=== PATIENT | female | born 1930 | race Caucasian/White ===

== ENCOUNTER → 2016-11-25 | Outpatient (CLI) | payer MEDICARE ==
[~2016-11-25] MED LIST: BUME1TAB PO; BUPR300T PO; CALTTAB PO; COZA50TA PO; DESE1CRE TOP; DIGO0.12 PO; FERR325T PO; IPRAAER INH; MAPA325T6 PO; OMPR20CCR PO; PERC5TAB12 PO; POTA-243 PO; PRAV10 PO; SM A81CH PO; SM V SL; TRIA.1%T TOP; WARF5TAB PO
--- NOTE | 2016-12-01 09:21 | RSPPFT ---
DATE OF PROCEDURE: 11/25/16 COMMENTS: Spirometry with FVC of 1.9 predicted 2.3, FEV1 of 1.4 predicted 1.5, FEV1/FVC ratio 72% predicted 80%. Post-bronchodilator FVC increases to 2.2. Lung volumes are basically within the predicted. DLCO is 60% of predicted and within the predicted range when corrected for alveolar volume. IMPRESSION: On the basis of the above, patient has flow values within the predicted range. There is a mild improvement post-bronchodilator.
== END ==
LOC: HRSP 08:51
PROVIDERS: ATTEND Internal Medicine Pulmonary Disease
DX: J44.9 Chronic obstructive pulmonary disease, unspecified (principal)
CPT/HCPCS: 94060; 94620; 94726; 94729

== ENCOUNTER 2018-01-17 13:35 | Inpatient (IN) ==
[2018-01-17] MEDS ORDERED: Sod Chloride 0.9% Inj 1,000 ML IV.CONT SCH (18:00)
--- NOTE | 2018-01-17 18:00 | ED ---
HPI General Chief Complaint: Respiratory Symptoms Stated Complaint: Cough/Back/Confused Complaint Time Seen by Provider: 01/17/18 17:42 Source: patient Mode of arrival: ambulatory Limitations: no limitations History of Present Illness HPI narrative: The patient is a 87-year-old female who presents to the emergency department via private vehicle with her for altered mental status and cough. According to the the patient developed a cough and shortness of breath approximately 2 weeks ago. The patient was unable to obtain an appointment with her primary physician, Dr. Soto, and subsequently went to the walk-in clinic at [facility]. The patient was placed on a cephalosporin at that time for cough, however, did not finish the antibiotic. The patient returned to the walk-in clinic and was subsequently placed on Augmentin. The patient also started taking Mucinex. The states the patient started to develop confusion after she started taking the medications. Upon arrival the patient is oriented to date of and name, but does not know the current month, year, or procurement agent. The patient does complain of a dry nonproductive cough with mild shortness of breath. The patient denies any nausea, vomiting, diarrhea, abdominal pain, or dysuria. The patient does take Coumadin for history of valvular disorder. The patient denies any trauma to the head or neck, however, was noted to have some ecchymosis to the left maxilla that occurred approximately 1 week ago according to the . complaint: Reports altered mental status, confusion and weakness Onset (ago): week(s) Timing confirmed by: spouse Severity: moderate Consistency of symptoms: waxing and waning and getting worse Context: Reports change in medication and other Associated symptoms: Reports cough and shortness of breath Treatments prior to arrival: Reports other Related Data Home Medications Medication Instructions Recorded Confirmed bumetanide 1 mg PO BID 01/17/18 01/17/18 bupropion HCl 300 mg PO QAM 01/17/18 01/17/18 digoxin 0.125 mg PO DAILY 01/17/18 01/17/18 losartan 50 mg PO DAILY 01/17/18 01/17/18 omeprazole 20 mg PO DAILY 01/17/18 01/17/18 potassium chloride 10 meq PO DAILY 01/17/18 01/17/18 pravastatin 10 mg PO DAILY 01/17/18 01/17/18 warfarin 5 mg PO DAILY 01/17/18 01/17/18 Allergies Allergy/AdvReac Type Severity Reaction Status Date / Time phenol Allergy Severe body rash Verified 01/17/18 13:58 and swollen tounge phenol liquid Allergy Severe body rash Verified 01/17/18 13:58 and swollen tounge red dye Allergy Severe Rash Verified 01/17/18 13:58 Sulfa (Sulfonamide Allergy Severe Hives Verified 01/17/18 13:58 Antibiotics) benzonatate Allergy Rash Verified 01/17/18 14:00 diltiazem [From Cardizem] Allergy Rash Verified 01/17/18 14:00 lisinopril Allergy Rash Verified 01/17/18 14:00 Review of Systems ROS: all other systems reviewed are negative [facility] Medical History Medical History CHF (congestive heart failure) (Acute) Depression (Acute) GERD (gastroesophageal reflux disease) (Acute) Hypercholesteremia (Acute) Hypertension (Acute) Surgical History Surgical History Aortic valve replaced (Acute) Social History Social History Substance History: No History of Abuse Second Hand Smoke Exposure: No Smoking Status: Never smoker How Often Do You Have a Drink Containing Alcohol: Monthly or less Recent Travel in [facility] within the Last 8 Weeks: No Recent Out of Country Travel within the Last 8 Weeks: No Immunization History Tetanus Immunization: <5 Years Exam Narrative Exam Narrative: GENERAL: Awake, alert, pleasant 87-year-old female who appears her stated age and is in no acute respiratory distress. SKIN: Focused skin assessment warm/dry. HEAD: The patient appears to have an old area of ecchymosis to the left maxilla. EYES: Pupils equal and round. 3 mm bilateral and reactive. ENT: No nasal bleeding or discharge. Mucous membranes pink and moist. NECK: Trachea midline. No JVD. CARDIOVASCULAR: Irregularly irregular with a rate in the 60s. Systolic murmur noted. RESPIRATORY: No accessory muscle use. Clear to auscultation. Breath sounds equal bilaterally. GASTROINTESTINAL: Abdomen soft, non-tender, nondistended. MUSCULOSKELETAL: No obvious deformities. No clubbing. No cyanosis. No edema. NEUROLOGICAL: Awake and alert. No obvious cranial nerve deficits. Motor grossly within normal limits. Normal speech. Patient is oriented to person and date of , but does not know the current month, year, or procurement agent. PSYCHIATRIC: Appears confused. Course Initial Documented Vital Signs Temperature 98.8 F 01/17/18 13:48 Pulse Rate 74 01/17/18 13:48 Respiratory Rate 16 01/17/18 13:48 Blood Pressure 199/86 H 01/17/18 13:48 Pulse Oximetry 99 01/17/18 13:48 Last Documented Vital Signs Temperature 98.8 F 01/17/18 13:48 Pulse Rate 75 01/17/18 21:06 Respiratory Rate 16 01/17/18 21:06 Blood Pressure 152/70 H 01/17/18 21:06 Pulse Oximetry 98 01/17/18 21:06 Sign Out Sign Out Data: Patient Sign Out occurred on 01/17/18 at 19:06. Patient's care was discussed, and care was transferred from Baldo Roth MD to David Barrientos DO. Sign Out Comment: 87-year-old female with 2-week history of cough, now with altered mental status. Has already been on a cephalosporin and Augmentin on an outpatient basis. Patient appears to have delirium with acute altered mental status, after workup most likely will need 23-hour observation and/or admission. Last updated by Baldo Roth MD at 01/17/18 18:48 Medical Decision Making MDM Narrative Medical decision making narrative: IV was established, labs are drawn and sent, and the patient was placed on cardiac telemetry monitoring and continuous pulse oximetry monitoring. Chest x-ray was obtained. CT of the brain was obtained to rule out intracranial hemorrhage/subdural hemorrhage as patient is on Coumadin with altered mental status. Patient with hyponatremia of 119 she is currently receiving normal saline at 125 cc an hour. AK I also noted. Patient is back to baseline as far as mentation. Her CAT scan was unremarkable. She was given clonidine p.o. 0.2 mg for blood pressure of 203/97. Subtherapeutic INR 1.7. Patient on bacteria on UA but no signs of pyuria nitrate and leuk esterase negative. She does have a marginal leukocytosis. No bandemia. Lactic acid is 2.0. Medical Screen Exam Complete: Yes Emergency Medical Condition: Yes Differential Diagnosis Differential Diagnosis: Differential diagnosis includes delirium, pneumonia, hyponatremia, acute renal failure, subdural hemorrhage, CVA, intracranial hemorrhage, UTI, medication side effect. Lab Data Result diagrams: 01/17/18 18:04 01/17/18 20:50 Lab Results 01/17/18 01/17/18 01/17/18 Range/Units 18:04 18:04 18:04 WBC 11.2 H (4.0-11.0) th/mm3 RBC 3.59 L (4.00-5.30) mil/mm3 Hgb 11.3 L (11.6-15.3) gm/dL Hct 32.8 L (35.0-46.0) % MCV 91.2 (80.0-100.0) fL MCH 31.5 (27.0-34.0) pg MCHC 34.5 (32.0-36.0) % RDW 15.3 (11.6-17.2) % Plt Count 196 (150-450) th/mm3 MPV 8.1 (7.0-11.0) fL Neut % (Auto) 82.9 H (16.0-70.0) % Lymph % (Auto) 7.7 L (9.0-44.0) % [place] % (Auto) 7.8 (0.0-8.0) % Eos % (Auto) 1.2 (0.0-4.0) % Baso % (Auto) 0.4 (0.0-2.0) % Neut # (Auto) 9.2 H (1.8-7.7) th/mm3 Lymph # (Auto) 0.9 L (1.0-4.8) th/mm3 [place] # (Auto) 0.9 (0.0-0.9) th/mm3 Eos # (Auto) 0.1 (0.0-0.4) th/mm3 Baso # (Auto) 0.0 (0.0-0.2) th/mm3 WBC Differential . Differential Comment Auto diff final PT 16.7 H (9.8-11.6) sec INR 1.7 Ratio APTT 38.1 H (23.4-31.7) sec Sodium 119 L* (136-145) meq/L Potassium 3.5 (3.5-5.1) meq/L Chloride 83 L (98-107) meq/L Carbon Dioxide 27.6 (21.0-32.0) meq/L Anion Gap 8 (5-15) meq/L BUN 17 (7-18) mg/dL Creatinine 1.18 H (0.50-1.00) mg/dL Estimated GFR 43 L (>89) mL/min Random Glucose 135 H (74-106) mg/dL Osmolality (275-295) mosm/kg Lactic Acid (0.4-2.0) mmol/L Calcium 9.2 (8.5-10.1) mg/dL Magnesium 1.8 (1.5-2.5) mg/dL Total Bilirubin 1.2 H (0.2-1.0) mg/dL AST 77 H (15-37) U/L ALT 44 (10-53) U/L Alkaline Phosphatase 72 (45-117) U/L Ammonia (11-32) mcmol/L Total Creatine Kinase 501 H (26-192) U/L CK-MB (CK-2) 8.0 H (0.5-3.6) ng/mL CK-MB (CK-2) % 1.6 (0.0-4.0) % Troponin I 0.02 (0.02-0.05) ng/mL Total Protein 8.4 H (6.4-8.2) g/dL Albumin 4.2 (3.4-5.0) g/dL TSH 1.240 (0.358-3.740) uIU/mL Urine Color (Yellw/Straw) Urine Clarity (Clear) Urine pH (5.0-8.5) Ur Specific [place] (1.002-1.035) Urine Protein (Neg-Trace) mg/dL Urine Glucose (UA) (Negative) mg/dL Urine Ketones (Negative) mg/dL Urine Occult Blood (Negative) Urine Nitrate (Negative) Urine Bilirubin (Negative) Urine Urobilinogen (Less than 2) mg/dL Ur Leukocyte Esterase (Negative) Urine RBC (0-3) /hpf Urine WBC (0-5) /hpf Ur Squamous Epith Cells (0-5) /hpf Urine Bacteria (None) /hpf Urine Mucus (Occasional) /lpf Micro UA Comment Ur Microscopic Review Urine Culture Comments Urine Osmolality (300-1300) mosm/kg Digoxin 1.2 (0.8-2.0) ng/mL 01/17/18 01/17/18 01/17/18 Range/Units 18:04 18:04 18:43 WBC (4.0-11.0) th/mm3 RBC (4.00-5.30) mil/mm3 Hgb (11.6-15.3) gm/dL Hct (35.0-46.0) % MCV (80.0-100.0) fL MCH (27.0-34.0) pg MCHC (32.0-36.0) % RDW (11.6-17.2) % Plt Count (150-450) th/mm3 MPV (7.0-11.0) fL Neut % (Auto) (16.0-70.0) % Lymph % (Auto) (9.0-44.0) % [place] % (Auto) (0.0-8.0) % Eos % (Auto) (0.0-4.0) % Baso % (Auto) (0.0-2.0) % Neut # (Auto) (1.8-7.7) th/mm3 Lymph # (Auto) (1.0-4.8) th/mm3 [place] # (Auto) (0.0-0.9) th/mm3 Eos # (Auto) (0.0-0.4) th/mm3 Baso # (Auto) (0.0-0.2) th/mm3 WBC Differential Differential Comment PT (9.8-11.6) sec INR Ratio APTT (23.4-31.7) sec Sodium (136-145) meq/L Potassium (3.5-5.1) meq/L Chloride (98-107) meq/L Carbon Dioxide (21.0-32.0) meq/L Anion Gap (5-15) meq/L BUN (7-18) mg/dL Creatinine (0.50-1.00) mg/dL Estimated GFR (>89) mL/min Random Glucose (74-106) mg/dL Osmolality (275-295) mosm/kg Lactic Acid 2.0 (0.4-2.0) mmol/L Calcium (8.5-10.1) mg/dL Magnesium (1.5-2.5) mg/dL Total Bilirubin (0.2-1.0) mg/dL AST (15-37) U/L ALT (10-53) U/L Alkaline Phosphatase (45-117) U/L Ammonia 14 (11-32) mcmol/L Total Creatine Kinase (26-192) U/L CK-MB (CK-2) (0.5-3.6) ng/mL CK-MB (CK-2) % (0.0-4.0) % Troponin I (0.02-0.05) ng/mL Total Protein (6.4-8.2) g/dL Albumin (3.4-5.0) g/dL TSH (0.358-3.740) uIU/mL Urine Color Yellow (Yellw/Straw) Urine Clarity Clear (Clear) Urine pH 6.0 (5.0-8.5) Ur Specific [place] 1.004 (1.002-1.035) Urine Protein 100 H (Neg-Trace) mg/dL Urine Glucose (UA) Negative (Negative) mg/dL Urine Ketones Negative (Negative) mg/dL Urine Occult Blood Small H (Negative) Urine Nitrate Negative (Negative) Urine Bilirubin Negative (Negative) Urine Urobilinogen Less than 2 (Less than 2) mg/dL Ur Leukocyte Esterase Negative (Negative) Urine RBC 2 (0-3) /hpf Urine WBC Less than 1 (0-5) /hpf Ur Squamous Epith Cells <1 (0-5) /hpf Urine Bacteria Occasional H (None) /hpf Urine Mucus Few H (Occasional) /lpf Micro UA Comment Culture not ind Ur Microscopic Review Not Reportable Urine Culture Comments Culture not ind Urine Osmolality (300-1300) mosm/kg Digoxin (0.8-2.0) ng/mL 01/17/18 01/17/18 01/17/18 Range/Units 20:50 20:50 20:55 WBC (4.0-11.0) th/mm3 RBC (4.00-5.30) mil/mm3 Hgb (11.6-15.3) gm/dL Hct (35.0-46.0) % MCV (80.0-100.0) fL MCH (27.0-34.0) pg MCHC (32.0-36.0) % RDW (11.6-17.2) % Plt Count (150-450) th/mm3 MPV (7.0-11.0) fL Neut % (Auto) (16.0-70.0) % Lymph % (Auto) (9.0-44.0) % [place] % (Auto) (0.0-8.0) % Eos % (Auto) (0.0-4.0) % Baso % (Auto) (0.0-2.0) % Neut # (Auto) (1.8-7.7) th/mm3 Lymph # (Auto) (1.0-4.8) th/mm3 [place] # (Auto) (0.0-0.9) th/mm3 Eos # (Auto) (0.0-0.4) th/mm3 Baso # (Auto) (0.0-0.2) th/mm3 WBC Differential Differential Comment PT (9.8-11.6) sec INR Ratio APTT (23.4-31.7) sec Sodium 124 L* (136-145) meq/L Potassium (3.5-5.1) meq/L Chloride (98-107) meq/L Carbon Dioxide (21.0-32.0) meq/L Anion Gap (5-15) meq/L BUN (7-18) mg/dL Creatinine (0.50-1.00) mg/dL Estimated GFR (>89) mL/min Random Glucose (74-106) mg/dL Osmolality 259 L (275-295) mosm/kg Lactic Acid (0.4-2.0) mmol/L Calcium (8.5-10.1) mg/dL Magnesium (1.5-2.5) mg/dL Total Bilirubin (0.2-1.0) mg/dL AST (15-37) U/L ALT (10-53) U/L Alkaline Phosphatase (45-117) U/L Ammonia (11-32) mcmol/L Total Creatine Kinase (26-192) U/L CK-MB (CK-2) (0.5-3.6) ng/mL CK-MB (CK-2) % (0.0-4.0) % Troponin I (0.02-0.05) ng/mL Total Protein (6.4-8.2) g/dL Albumin (3.4-5.0) g/dL TSH (0.358-3.740) uIU/mL Urine Color (Yellw/Straw) Urine Clarity (Clear) Urine pH (5.0-8.5) Ur Specific [place] (1.002-1.035) Urine Protein (Neg-Trace) mg/dL Urine Glucose (UA) (Negative) mg/dL Urine Ketones (Negative) mg/dL Urine Occult Blood (Negative) Urine Nitrate (Negative) Urine Bilirubin (Negative) Urine Urobilinogen (Less than 2) mg/dL Ur Leukocyte Esterase (Negative) Urine RBC (0-3) /hpf Urine WBC (0-5) /hpf Ur Squamous Epith Cells (0-5) /hpf Urine Bacteria (None) /hpf Urine Mucus (Occasional) /lpf Micro UA Comment Ur Microscopic Review Urine Culture Comments Urine Osmolality 91 L (300-1300) mosm/kg Digoxin (0.8-2.0) ng/mL Imaging Data Radiologist's impression: Chest X-Ray 01/17/18 17:50 CONCLUSION: Cardiomegaly with increase in pulmonary vascularity. Head CT 01/17/18 17:50 CONCLUSION: 1. Negative for an acute intracranial process 2. Minimal bilateral maxillary sinus disease . ECG Data EKG Prior to Arrival: No Attestation: I personally reviewed and interpreted this ECG as follows: Interpretation: EKG reveals atrial fibrillation with a rate in the 60s. Nonspecific ST changes. Discharge Plan Discharge Disposition Patient Disposition: 30 Still Patient Discharge Condition Condition: Good Discharge Details Diagnosis: Acute hyponatremia, Acute confusion Physicians Team ED Provider: David Barrientos Primary Care Provider: Ponce Soto Attending Provider: Teo Kent Discharge Interventions Interventions: ED Discharge Assessment Last Done: 01/17/18 21:25 Vital Signs Last Done: 01/17/18 19:22 Status ED Status: Left Department Discharge Information Discharge Date/Time: 01/17/18 21:26
[2018-01-17 18:25] LABS: Baso % (Auto) 0.4 % (0.0-2.0); Eos # (Auto) 0.1 th/mm3 (0.0-0.4); Eos % (Auto) 1.2 % (0.0-4.0); Hematocrit 32.8 % (35.0-46.0); Hemoglobin 11.3 gm/dL (11.6-15.3); Lymph # (Auto) 0.9 th/mm3 (1.0-4.8); Lymph % (Auto) 7.7 % (9.0-44.0); Mean Corpuscular HGB Conc 34.5 % (32.0-36.0); Mean Corpuscular Hemoglobin 31.5 pg (27.0-34.0); Mean Corpuscular Volume 91.2 fL (80.0-100.0); Mean Platelet Volume 8.1 fL (7.0-11.0); Mono # (Auto) 0.9 th/mm3 (0.0-0.9); Mono % (Auto) 7.8 % (0.0-8.0); Neut # (Auto) 9.2 th/mm3 (1.8-7.7); Neut % (Auto) 82.9 % (16.0-70.0); Platelet Count 196 th/mm3 (150-450); Red Blood Count 3.59 mil/mm3 (4.00-5.30); Red Cell Distribution Width 15.3 % (11.6-17.2); White Blood Count 11.2 th/mm3 (4.0-11.0)
--- NOTE | 2018-01-17 18:48 | CT ---
EXAM DATE: 01/17/2018 6:32 PM EST AGE/SEX: 87 years / Female INDICATIONS: Altered mental status CLINICAL DATA: This is the patient's initial encounter. Patient reports that signs and symptoms have been present for 1 day and indicates a pain score of 2/10. MEDICAL/SURGICAL HISTORY: Congestive heart failure. Hypertension. . Aortic valve RADIATION DOSE: 34.94 CTDI (mGy) COMPARISON: [facility], CT BRAIN W/O CONTRAST, 04/10/2010. . TECHNIQUE: CT of the head without contrast. Using automated exposure control and adjustment of the mA and/or kV according to patient size, radiation dose was kept as low as reasonably achievable to ob tain optimal diagnostic quality images. DICOM format image data is available electronically for revi ew and comparison. FINDINGS: Cerebrum: The ventricles are normal for age. No evidence of midline shift, mass lesion, hemorrhage or acute infarction. No extraaxial fluid collections are seen. Posterior Fossa: The cerebellum and brainstem are intact. The 4th ventricle is midline. The cerebe llopontine angle is unremarkable. Extracranial: The visualized portion of the orbits is intact. Skull: The calvaria is intact. Minimal bilateral maxillary sinus disease No evidence of skull fract ure. CONCLUSION: 1. Negative for an acute intracranial process 2. Minimal bilateral maxillary sinus disease . Electronically signed by: Italo Baig MD 01/17/2018 6:47 PM EST
[2018-01-17 18:52] LABS: Activated Partial Thrombo Time 38.1 sec (23.4-31.7); INR 1.7 Ratio; Prothrombin Time 16.7 sec (9.8-11.6)
[2018-01-17 18:54] LABS: Alanine Aminotransferase 44 U/L (10-53); Albumin 4.2 g/dL (3.4-5.0); Anion Gap 8 meq/L (5-15); Aspartate Aminotransferase 77 U/L (15-37); Blood Urea Nitrogen 17 mg/dL (7-18); Calcium 9.2 mg/dL (8.5-10.1); Carbon Dioxide 27.6 meq/L (21.0-32.0); Chloride 83 meq/L (98-107); Glomerular Filtration Rate 43 mL/min (>89); Glucose,Random 135 mg/dL (74-106); Magnesium 1.8 mg/dL (1.5-2.5); Potassium 3.5 meq/L (3.5-5.1)
[2018-01-17 18:56] LABS: Sodium 119 meq/L (136-145)
[2018-01-17 19:03] LABS: Bacteria,Urine Occasional /hpf; Bilirubin,Urine Negative (Negative); Clarity,Urine Clear (Clear); Color,Urine Yellow (Yellw/Straw); Glucose,Urine (UA) Negative (Negative); Leukocyte Esterase,Urine Negative (Negative); Mucus,Urine Few /lpf (Occasional); Nitrite,Urine Negative (Negative); Specific Gravity,Urine 1.004 (1.002-1.035); Squamous Epithelial Cell,Urine <1 /hpf (0-5)
--- NOTE | 2018-01-17 19:04 | XR ---
EXAM DATE: 01/17/2018 6:24 PM EST AGE/SEX: 87 years / Female INDICATIONS: Short of breath. CLINICAL DATA: This is the patient's initial encounter. Patient reports that signs and symptoms have been present for 1 day and indicates a pain score of 0/10. MEDICAL/SURGICAL HISTORY: None. CABG. COMPARISON: No prior exams available for comparison. FINDINGS: A single AP view of the chest demonstrates cardiomegaly with heart valve replacements. Increase in pu lmonary vascularity. No infiltrate or airspace disease. The cardiomediastinal contours are unremarka ble. Osseous structures are intact. CONCLUSION: Cardiomegaly with increase in pulmonary vascularity. Electronically signed by: Efren Booth MD 01/17/2018 7:02 PM EST
[2018-01-17 19:09] LABS: Alkaline Phosphatase 72 U/L (45-117); Creatine Kinase 501 U/L (26-192); Digoxin 1.2 ng/mL (0.8-2.0); Total Protein 8.4 g/dL (6.4-8.2); Troponin I 0.02 ng/mL (0.02-0.05)
[2018-01-17 19:24] LABS: CKMB Percent 1.6 % (0.0-4.0)
[2018-01-17] MEDS ORDERED: Bisacodyl 10 MG Supp RECTAL PRN (20:04)
[2018-01-17] MEDS ORDERED: Acetaminophen 325 MG Tablet PO PRN (20:04)
[2018-01-17] MEDS ORDERED: Non-Formulary Drug (Bupropion Hcl [Bupropion Hcl] 300 MG) PO SCH (20:15)
[2018-01-18] MEDS: Sod Chloride 0.9% Inj 1,000 ML IV.CONT SCH ×2 (01:30→18:32)
[2018-01-18] MEDS: buPROPion 150 MG 12 HR Tablet PO SCH ×3 (04:02→22:07)
[2018-01-18 08:07] LABS: INR 1.9 Ratio; Prothrombin Time 19.3 sec (9.8-11.6)
[2018-01-18 08:30] LABS: Albumin 2.9 g/dL (3.4-5.0); Anion Gap 8 meq/L (5-15); Aspartate Aminotransferase 45 U/L (15-37); Blood Urea Nitrogen 17 mg/dL (7-18); Calcium 8.5 mg/dL (8.5-10.1); Carbon Dioxide 27.2 meq/L (21.0-32.0); Chloride 92 meq/L (98-107); Glomerular Filtration Rate 55 mL/min (>89); Glucose,Random 97 mg/dL (74-106); Potassium 3.5 meq/L (3.5-5.1); Sodium 127 meq/L (136-145)
--- NOTE | 2018-01-18 08:31 | P.HPIM ---
History of Present Illness Primary Care Physician: Ponce Soto MD Chief Complaint: Cough History of Present Illness: The patient is a 87-year-old female with a past medical history which includes aortic valve stenosis, Mitral and tricuspid valve regurgitation S/P Mitral and tricuspid valve repair on March 25, 2010 on chronic atrial fibrillation, gastroesophageal reflux disease, Lichens sclerosis, obstructive sleep apnea, HTN and hyperlipidemia. Patient presented to the ER last night with her for altered mental status and cough. According to the the patient developed a cough and shortness of breath approximately 2 weeks ago. The patient was unable to obtain an appointment with her primary physician, Dr. Soto, and subsequently went to the walk-in clinic at [facility]. The patient was placed on a cephalosporin at that time for cough, however, did not finish the antibiotic. The patient returned to the walk-in clinic and was subsequently placed on Augmentin. The patient also started taking Mucinex. The states the patient started to develop confusion after she started taking the medications. 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 The patient reports that she felt sick after taking the abx. The abx made her stomach upset but denies vomiting/diarrhea. Patient reports that she is not a big eater. PMH: History of aortic valve stenosis. S/P mechanical MVR Mitral and tricuspid valve regurgitation Mitral and tricuspid valve repair on March 25, 2010. She has history of chronic atrial fibrillation. History of gastroesophageal reflux disease. Lichens sclerosis. History of obstructive sleep apnea. History of hypertension in the past. Hyperlipidemia in the past. PSxH: History of bilateral knee replacements. BETO/BSO. History of bladder suspension surgery. Bladder fistula repair Colonoscopy EGD mitral and tricuspid valve annuloplasty AVR with mechanical valve paravaginal defect repair rotator cuff repair BETO with BSO total knee arthroplasty Social history: denies ETOH use or tobacco use FMH: Reviewed and noncontributory Inpatient Certification Inpatient Certification: I certify that the inpatient services were ordered in accordance with Medicare regulations governing the order. This includes certification that hospital inpatient services are reasonable and necessary and in the case of services not specified as inpatient-only under 42 CFR 419.22(n), that they are appropriately provided as inpatient services in accordance to with the 2-midnight benchmark under 43 CFR 412.3(e) Estimated Total Length of Stay (Days): 3 Plans for Post Hospital Care: Not yet determined Medications and Allergies Allergies Allergy/AdvReac Type Severity Reaction Status Date / Time phenol Allergy Severe body rash Verified 01/17/18 13:58 and swollen tounge phenol liquid Allergy Severe body rash Verified 01/17/18 13:58 and swollen tounge red dye Allergy Severe Rash Verified 01/17/18 13:58 Sulfa (Sulfonamide Allergy Severe Hives Verified 01/17/18 13:58 Antibiotics) benzonatate Allergy Rash Verified 01/17/18 14:00 diltiazem [From Cardizem] Allergy Rash Verified 01/17/18 14:00 lisinopril Allergy Rash Verified 01/17/18 14:00 Home Medications Medication Instructions Recorded Confirmed Type bumetanide 1 mg PO BID 01/17/18 01/17/18 History bupropion HCl 300 mg PO QAM 01/17/18 01/17/18 History digoxin 0.125 mg PO DAILY 01/17/18 01/17/18 History losartan 50 mg PO DAILY 01/17/18 01/17/18 History omeprazole 20 mg PO DAILY 01/17/18 01/17/18 History potassium chloride 10 meq PO DAILY 01/17/18 01/17/18 History pravastatin 10 mg PO DAILY 01/17/18 01/17/18 History warfarin 5 mg PO DAILY 01/17/18 01/17/18 History Active Medications: Active Medications Acetaminophen (Tylenol) 650 mg PO Q4H PRN PRN Reason: Temp > 100.4 Al Hydroxide/Mg Hydroxide (Milk Of Sara Liq) 30 ml PO Q12H PRN PRN Reason: Mild Constipation Bisacodyl (Dulcolax Supp) 10 mg RECTAL DAILY PRN PRN Reason: SEVERE CONSITIPATION Bupropion HCl (Wellbutrin Sr) 150 mg PO BID [facility] Last Admin: 01/18/18 04:02 Dose: Not Given Clonidine HCl (Catapres) 0.1 mg PO Q6H PRN PRN Reason: sbp> 170 Digoxin (Lanoxin) 125 mcg PO DAILY [facility] Sodium Chloride (Ns Inj) 1,000 mls @ 50 mls/hr IV.CONT .Q20H [facility] Last Admin: 01/18/18 01:30 Dose: 50 mls/hr Lactulose (Lactulose Liq) 30 ml PO DAILY PRN PRN Reason: SEVERE CONSITIPATION Losartan Potassium (Cozaar) 50 mg PO DAILY [facility] Ondansetron HCl (Zofran Inj) 4 mg IV.PUSH Q6H PRN PRN Reason: NAUSEA OR VOMITING Pantoprazole Sodium (Protonix) 20 mg PO DAILY [facility] Potassium Chloride (Klor-Con 10) 10 meq PO DAILY [facility] Pravastatin Sodium (Pravachol) 10 mg PO DAILY [facility] Sennosides (Senokot) 17.2 mg PO Q12H PRN PRN Reason: Moderate Constipation Sodium Chloride (Ns Flush) 2 ml IV.FLUSH PRN PRN PRN Reason: FLUSH AFTER USING IV ACCESS Warfarin Sodium (Coumadin) 5 mg PO DAILY [facility] Physical Exam Vital signs: Last Vital Signs Temp 97.7 F 01/18/18 08:00 Pulse 48 L 01/18/18 08:00 Resp 16 01/18/18 08:00 BP 124/54 L 01/18/18 08:00 Pulse Ox 97 01/18/18 08:00 Narrative: GENERAL: This is a thin elderly 87 year old female, well-developed patient, in no apparent distress. CARDIOVASCULAR: irregular irregular RESPIRATORY: diminished GASTROINTESTINAL: Abdomen soft, non-tender, nondistended. Normal active bowel sounds MUSCULOSKELETAL: Extremities without clubbing, cyanosis, or edema. NEURO: Alert & Oriented patient able to tell me her name , location, month and preseident. Moves all ext x4 Results Labs CBC & Chem 7: 01/17/18 18:04 01/18/18 12:38 Caprini VTE Risk Assessment Caprini VTE Risk Assessment: Moderate/High Risk (score >= 2) Caprini Risk Assessment Model: Point Value = 1 Point Value = 2 Point Value = 3 Point Value = 5 Age 41-60 Minor surgery BMI > 25 kg/m2 Swollen legs Varicose veins or History of unexplained or recurrent spontaneous Oral contraceptives or hormone replacement Sepsis (< 1 month) Serious lung disease, including pneumonia (< 1 month) Abnormal pulmonary function Acute myocardial infarction Congestive heart failure (< 1 month) History of inflammatory bowel disease Medical patient at bed rest Age 61-74 Arthroscopic surgery Major open surgery (> 45 min) Laparoscopic surgery (> 45 min) Malignancy Confined to bed (> 72 hours) Immobilizing plaster cast Central venous access Age >= 75 History of VTE Family history of VTE Factor V Leiden Prothrombin [id number] Lupus anticoagulant Anticardiolipin antibodies Elevated serum homocysteine Heparin-induced thrombocytopenia Other congenital or acquired thrombophilia Stroke (< 1 month) Elective arthroplasty Hip, pelvis, or leg fracture Acute spinal cord injury (< 1 month) Prophylaxis Regimen: Total Risk Factor Score Risk Level Prophylaxis Regimen 0-1 Low Early ambulation 2 Moderate Order ONE of the following: *Sequential Compression Device (SCD) *Heparin 5000 units SQ BID 3-4 Higher Order ONE of the following medications: *Heparin 5000 units SQ TID *Enoxaparin/Lovenox 40 mg SQ daily (WT < 150 kg, CrCl > 30 mL/min) *Enoxaparin/Lovenox 30 mg SQ daily (WT < 150 kg, CrCl > 10-29 mL/min) *Enoxaparin/Lovenox 30 mg SQ BID (WT < 150 kg, CrCl > 30 mL/min) AND/OR *Sequential Compression Device (SCD) 5 or more Highest Order ONE of the following medications: *Heparin 5000 units SQ TID (Preferred with Epidurals) *Enoxaparin/Lovenox 40 mg SQ daily (WT < 150 kg, CrCl > 30 mL/min) *Enoxaparin/Lovenox 30 mg SQ daily (WT < 150 kg, CrCl > 10-29 mL/min) *Enoxaparin/Lovenox 30 mg SQ BID (WT < 150 kg, CrCl > 30 mL/min) AND *Sequential Compression Device (SCD) Assessment and Plan Plan The patient is a 87-year-old female with a past medical history which includes who presents to the emergency department via private vehicle with her for altered mental status and cough. According to the the patient developed a cough and shortness of breath approximately 2 weeks ago. The patient was unable to obtain an appointment with her primary physician, Dr. Soto, and subsequently went to the walk-in clinic at [facility]. The patient was placed on a cephalosporin at that time for cough, however, did not finish the antibiotic. The patient returned to the walk-in clinic and was subsequently placed on Augmentin. The patient also started taking Mucinex. The states the patient started to develop confusion after she started taking the medications. 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 The patient does complain of a dry nonproductive cough with mild shortness of breath. The patient denies any nausea, vomiting, diarrhea, abdominal pain, or dysuria. The patient does take Coumadin for history of valvular disorder. The patient reports that she felt sick after taking the abx. The abx made her stomach upset but denies vomiting/diarrhea. Patient reports that she is not a big eater. AMS- improving likely related to Hyponatremia Head CT 01/17/18 1. Negative for an acute intracranial process 2. Minimal bilateral maxillary sinus disease on admission Na was 119 -> 124 -> 127 hold Bumex Continue gentle IVF recheck BMP at noon and in AM Cough- improving Chest X-Ray 01/17/18 Cardiomegaly with increase in pulmonary vascularity. Aortic valve stenosis S/P AVR mechanical valve chronic atrial fibrillation. INR on admission 1.7 -> 1.9 Will give Lovenox 50 mg x 1 continue Coumadin recheck INR in AM Gastroesophageal reflux disease Continue patient's home omeprazole Hyperlipidemia Continue home pravastatin DVT prophylaxis on Coumadin
[2018-01-18 08:36] LABS: Alanine Aminotransferase 28 U/L (10-53); Alkaline Phosphatase 52 U/L (45-117); Total Protein 5.9 g/dL (6.4-8.2)
[2018-01-18] MEDS: Pantoprazole Sodium 20 MG DR Tablet PO SCH (09:03)
[2018-01-18] MEDS: Digoxin 125 MCG Tablet PO SCH (09:30)
[2018-01-18] MEDS ORDERED: Enoxaparin Inj 60 MG/0.6 ML Syringe SQ ONE (12:56)
[2018-01-18 13:27] LABS: Calcium 8.6 mg/dL (8.5-10.1); Carbon Dioxide 28.7 meq/L (21.0-32.0); Potassium 3.8 meq/L (3.5-5.1)
--- NOTE | 2018-01-18 15:31 | ECG ---
Date Performed: 01/17/2018 Time Performed: 18:10:31 PTAGE: 87 years EKG: ATRIAL FIBRILLATION MARKED LEFT AXIS DEVIATION ANTEROSEPTAL MYOCARDIAL INFARCTION ABNORMAL ECG INTERPRETATION BASED ON A DEFAULT AGE OF 40 YEARS PREVIOUS TRACING : 02/09/2014 12.54 Since the previous tracing, no significant change not ed DOCTOR: Ed Correa Interpretating Date/Time 01/18/2018 15:29:48
[2018-01-19 08:31] LABS: Baso % (Auto) 0.5 % (0.0-2.0); Eos # (Auto) 0.1 th/mm3 (0.0-0.4); Eos % (Auto) 1.5 % (0.0-4.0); Hematocrit 27.6 % (35.0-46.0); Hemoglobin 9.8 gm/dL (11.6-15.3); Lymph # (Auto) 0.6 th/mm3 (1.0-4.8); Lymph % (Auto) 8.7 % (9.0-44.0); Mean Corpuscular HGB Conc 35.3 % (32.0-36.0); Mean Corpuscular Hemoglobin 32.3 pg (27.0-34.0); Mean Corpuscular Volume 91.3 fL (80.0-100.0); Mean Platelet Volume 7.9 fL (7.0-11.0); Mono # (Auto) 0.8 th/mm3 (0.0-0.9); Mono % (Auto) 10.7 % (0.0-8.0); Neut # (Auto) 5.6 th/mm3 (1.8-7.7); Neut % (Auto) 78.6 % (16.0-70.0); Platelet Count 113 th/mm3 (150-450); Red Blood Count 3.02 mil/mm3 (4.00-5.30); Red Cell Distribution Width 15.3 % (11.6-17.2); White Blood Count 7.2 th/mm3 (4.0-11.0)
[2018-01-19 08:37] LABS: INR 2.3 Ratio; Prothrombin Time 22.9 sec (9.8-11.6)
[2018-01-19 08:58] LABS: Calcium 8.6 mg/dL (8.5-10.1); Carbon Dioxide 25.7 meq/L (21.0-32.0); Potassium 3.6 meq/L (3.5-5.1)
[2018-01-19] MEDS: buPROPion 150 MG 12 HR Tablet PO SCH ×2 (09:19→20:59)
[2018-01-19] MEDS: Digoxin 125 MCG Tablet PO SCH ×2 (09:21→09:23)
[2018-01-19] MEDS: Pantoprazole Sodium 20 MG DR Tablet PO SCH (09:22)
--- NOTE | 2018-01-19 09:40 | P.PNIM ---
Subjective Interval history: Pt awake and alert this morning. She complains of being hungry but otherwise offers no new complaints She denies any abd pain, N/V, headache, chest pain, or SOB Physical Exam Vital signs: Last Vital Signs Temp 98.0 F 01/19/18 08:00 Pulse 61 01/19/18 08:00 Resp 16 01/19/18 08:00 BP 156/70 H 01/19/18 08:00 Pulse Ox 97 01/19/18 08:00 Narrative: GENERAL: This is a thin elderly 87 year old female, well-developed patient, in no apparent distress. CARDIOVASCULAR: irregular irregular RESPIRATORY: diminished GASTROINTESTINAL: Abdomen soft, non-tender, nondistended. Normal active bowel sounds MUSCULOSKELETAL: Extremities without clubbing, cyanosis, or edema. NEURO: Alert & Oriented patient able to tell me her name , location, month and who the president is. Moves all ext x4 Results Labs CBC & Chem 7: 01/19/18 07:57 01/19/18 07:57 Imaging Chest X-Ray 01/17/18 17:50 CONCLUSION: Cardiomegaly with increase in pulmonary vascularity. Head CT 01/17/18 17:50 CONCLUSION: 1. Negative for an acute intracranial process 2. Minimal bilateral maxillary sinus disease . Assessment and Plan Plan The patient is a 87-year-old female with a past medical history which includes who presents to the emergency department via private vehicle with her for altered mental status and cough. According to the the patient developed a cough and shortness of breath approximately 2 weeks ago. The patient was unable to obtain an appointment with her primary physician, Dr. Soto, and subsequently went to the walk-in clinic at [facility]. The patient was placed on a cephalosporin at that time for cough, however, did not finish the antibiotic. The patient returned to the walk-in clinic and was subsequently placed on Augmentin. The patient also started taking Mucinex. The states the patient started to develop confusion after she started taking the medications. Upon arrival the patient is oriented to date of and name, but does not know the current month, year, or mechanical cad drafter. The patient does complain of a dry nonproductive cough with mild shortness of breath. The patient denies any nausea, vomiting, diarrhea, abdominal pain, or dysuria. The patient does take Coumadin for history of valvular disorder. The patient reports that she felt sick after taking the abx. The abx made her stomach upset but denies vomiting/diarrhea. Patient reports that she is not a big eater. AMS- improving likely related to Hyponatremia - Head CT 01/17/18 1. Negative for an acute intracranial process 2. Minimal bilateral maxillary sinus disease - Labs on admission showed Na+ was 119 -> 124 -> 127 --> 125 --> 129 - Cont. to hold Bumex - Continue gentle IVF and encourage oral intake - Recheck BMP in AM - PT recommending HHC/PT Cough- improving - Chest X-Ray 01/17/18 Cardiomegaly with increase in pulmonary vascularity. Aortic valve stenosis S/P AVR mechanical valve chronic atrial fibrillation. - INR on admission 1.7 -> 1.9 - Pt was given Lovenox 50 mg x 1 on 01/18 - Repeat INR on 03/21 is 2.3 - repeat INR in AM - Continue Coumadin 5mg daily - Cont. Dig 0.125mg daily Gastroesophageal reflux disease - Continue patient's home omeprazole Hyperlipidemia - Continue home pravastatin DVT prophylaxis on Coumadin Attending Attestation Patient examined. Assessment and plan formulated with Tiana Minaya PA-C. I agree with the above.
[2018-01-19] MEDS: Sod Chloride 0.9% Inj 1,000 ML IV.CONT SCH (12:09)
[2018-01-19] MEDS ORDERED: guaiFENesin 600 MG ER Tablet PO ONE (14:31)
[2018-01-19] MEDS: guaiFENesin 600 MG ER Tablet PO SCH (20:59)
[2018-01-19 23:33] VITALS: O2SAT 97
[2018-01-20 07:18] LABS: Baso % (Auto) 0.3 % (0.0-2.0); Eos # (Auto) 0.1 th/mm3 (0.0-0.4); Eos % (Auto) 1.2 % (0.0-4.0); Hematocrit 26.1 % (35.0-46.0); Lymph # (Auto) 0.5 th/mm3 (1.0-4.8); Lymph % (Auto) 7.6 % (9.0-44.0); Mean Corpuscular HGB Conc 34.6 % (32.0-36.0); Mean Corpuscular Hemoglobin 32.5 pg (27.0-34.0); Mean Corpuscular Volume 93.9 fL (80.0-100.0); Mean Platelet Volume 7.9 fL (7.0-11.0); Mono # (Auto) 0.8 th/mm3 (0.0-0.9); Neut # (Auto) 5.8 th/mm3 (1.8-7.7); Neut % (Auto) 79.9 % (16.0-70.0); Platelet Count 98 th/mm3 (150-450); Red Blood Count 2.78 mil/mm3 (4.00-5.30); Red Cell Distribution Width 15.6 % (11.6-17.2); White Blood Count 7.2 th/mm3 (4.0-11.0)
[2018-01-20 07:23] LABS: INR 2.5 Ratio; Prothrombin Time 25.1 sec (9.8-11.6)
[2018-01-20 07:43] LABS: Calcium 8.2 mg/dL (8.5-10.1); Carbon Dioxide 23.5 meq/L (21.0-32.0)
--- NOTE | 2018-01-20 08:05 | XR ---
EXAM DATE: 01/20/2018 7:55 AM EST AGE/SEX: 87 years / Female INDICATIONS: Short of breath and cough. CLINICAL DATA: This is the patient's subsequent encounter. Patient reports that signs and symptoms h ave been present for 3 days and indicates a pain score of 0/10. MEDICAL/SURGICAL HISTORY: None. CABG. COMPARISON: [facility], CHEST 1V SINGLE AP, 01/17/2018. . FINDINGS: The patient is post median sternotomy and valvular replacement. There are diffuse chronic interstitia l changes throughout the pulmonary parenchyma. There is bibasal or infiltrate and minimal basilar eff usion. These findings are new compared to previous study of 01/17/2018. The examination would suggest probable congestive failure. CONCLUSION: The exam demonstrates diffuse interstitial fibrotic changes are probable superimposed congestive fail ure which appears new compared to previous of 01/17/2018. The patient is post median sternotomy and valvular replacement. Electronically signed by: Sachin Baig MD 01/20/2018 8:04 AM EST
--- NOTE | 2018-01-20 08:09 | P.DCO ---
Physical Therapy Order: Evaluate and treat Home Health Nursing Order: Medical education, Signs/symptoms of disease process and Nursing assessment with vital signs Instructions: Check CBC, BMP, PT/INR on 01/24/18, with results to the pts PCP, Dr. Soto. Case Management Consult Case Management Consult-Home Health: Yes I have seen patient Tushar Edge on 01/20/18. My clinical findings support the need for the requested home health care services because: Deconditioned with increased weakness I certify that my clinical findings support that this patient is homebound because: Unsteady gait/balance
[2018-01-20 08:32] VITALS: BP 167/71; RESP 16; TEMP 97.9
[2018-01-20 08:32] LABS: Path Slide Review 1; Platelet Morphology Normal (Normal)
[2018-01-20] MEDS: buPROPion 150 MG 12 HR Tablet PO SCH (11:07)
[2018-01-20] MEDS: Pantoprazole Sodium 20 MG DR Tablet PO SCH (11:08)
[2018-01-20] MEDS: Digoxin 125 MCG Tablet PO SCH (11:09)
[2018-01-20] MEDS: guaiFENesin 600 MG ER Tablet PO SCH (11:09)
[2018-01-20 12:06] VITALS: PULSE 73
--- NOTE | 2018-01-20 13:35 | P.DS ---
DS: Providers Date of admission: 01/17/18 20:01 Primary care physician: Ponce Soto MD Consults: 01/20/18 12:39 HUB Only Consult Order Routine Consulting Provider: [facility] Brief History from admission: The patient is a 87-year-old female with a past medical history which includes aortic valve stenosis, Mitral and tricuspid valve regurgitation S/P Mitral and tricuspid valve repair on March 25, 2010 on chronic atrial fibrillation, gastroesophageal reflux disease, Lichens sclerosis, obstructive sleep apnea, HTN and hyperlipidemia. Patient presented to the ER last night with her for altered mental status and cough. According to the the patient developed a cough and shortness of breath approximately 2 weeks ago. The patient was unable to obtain an appointment with her primary physician, Dr. Soto, and subsequently went to the walk-in clinic at [facility]. The patient was placed on a cephalosporin at that time for cough, however, did not finish the antibiotic. The patient returned to the walk-in clinic and was subsequently placed on Augmentin. The patient also started taking Mucinex. The states the patient started to develop confusion after she started taking the medications. 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 The patient reports that she felt sick after taking the abx. The abx made her stomach upset but denies vomiting/diarrhea. Patient reports that she is not a big eater. PMH: History of aortic valve stenosis. S/P mechanical MVR Mitral and tricuspid valve regurgitation Mitral and tricuspid valve repair on March 25, 2010. She has history of chronic atrial fibrillation. History of gastroesophageal reflux disease. Lichens sclerosis. History of obstructive sleep apnea. History of hypertension in the past. Hyperlipidemia in the past. PSxH: History of bilateral knee replacements. BETO/BSO. History of bladder suspension surgery. Bladder fistula repair Colonoscopy EGD mitral and tricuspid valve annuloplasty AVR with mechanical valve paravaginal defect repair rotator cuff repair BETO with BSO total knee arthroplasty Social history: denies ETOH use or tobacco use FMH: Reviewed and noncontributory DS: Summary Hyponatremia AMS The patient is a 87-year-old female with a past medical history which includes who presents to the emergency department via private vehicle with her for altered mental status and cough. According to the the patient developed a cough and shortness of breath approximately 2 weeks ago. The patient was unable to obtain an appointment with her primary physician, Dr. Soto, and subsequently went to the walk-in clinic at [facility]. The patient was placed on a cephalosporin at that time for cough, however, did not finish the antibiotic. The patient returned to the walk-in clinic and was subsequently placed on Augmentin. The patient also started taking Mucinex. The states the patient started to develop confusion after she started taking the medications. 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 The patient does complain of a dry nonproductive cough with mild shortness of breath. The patient denies any nausea, vomiting, diarrhea, abdominal pain, or dysuria. The patient does take Coumadin for history of valvular disorder. The patient reports that she felt sick after taking the abx. The abx made her stomach upset but denies vomiting/ diarrhea. Patient reports that she is not a big eater. It was felt that the pts AMS was likely related to hyponatremia. As her hyponatremia improved, her AMS improved. Head CT (01/17/18) was negative for an acute intracranial process and noted minimal bilateral maxillary sinus disease. Her labs on admission showed Na+ was 119. Pt was given gentle IVF hydration and labs improved from 119 (01/17) --> 124 (01/17) --> 127 (01/18) --> 125 (01/18) - -> 129 (01/19) --> 132 (01/20). Her Bumex was held at admission. She reported a cough at admission which did also improve. Chest X-Ray (01/17/18) noted cardiomegaly with increase in pulmonary vascularity. Repeat CXR (01/20/18) noted diffuse interstitial fibrotic changes are probable superimposed congestive failure which appears new compared to previous of 01/17/2018. Pt was maintaining O2 sats on RA and was resumed on her Bumex 1mg BID on 01/20. She will have repeat labs including CBC, BMP and PT/INR on Wednesday01/24/18 with results to her PCP, Dr. Soto. She will need to followup with her PCP, Dr. Soto, next week. Aortic valve stenosis S/P AVR mechanical valve chronic atrial fibrillation. Patients INR on admission was 1.7. She was resumed on her COumadin at home dose of 5mg po daily. Her INR slowly improved to 1.9 (01/18) --> 2.3 (01/19) --> 2.5 (01/20). Pt was given Lovenox 50 mg to cover her until her INR was above 2. She will have a repeat INR on 01/24/18. She will continue Coumadin 5mg daily upon discharge and her hose dose of Digoxin 0.125mg daily. Gastroesophageal reflux disease - Continue patient's home omeprazole Hyperlipidemia - Continue home pravastatin The exam, history, and the medical decision-making described in the above note were completed with the assistance of the mid-level provider. I reviewed and agree with the findings presented. I attest that I had a [id number] encounter with the patient on the same day, and personally performed and documented my assessment and findings in the medical record. Patient examined. Assessment and plan formulated with Tiana Minaya PA-C. I agree with the above. Time Spent with Patient Total time spent providing and/or coordinating discharge services: Results Labs on day of discharge: Labs from last 24 hours 01/20/18 01/20/18 01/20/18 06:11 06:11 06:11 WBC 7.2 RBC 2.78 L Hgb 9.0 L Hct 26.1 L MCV 93.9 MCH 32.5 MCHC 34.6 RDW 15.6 Plt Count 98 L MPV 7.9 Prelim Diff (Auto) Slide review pending Neut % (Auto) 79.9 H Lymph % (Auto) 7.6 L [place] % (Auto) 11.0 H Eos % (Auto) 1.2 Baso % (Auto) 0.3 Neut # (Auto) 5.8 Lymph # (Auto) 0.5 L [place] # (Auto) 0.8 Eos # (Auto) 0.1 Baso # (Auto) 0.0 WBC Differential . Diff Scan Auto diff confirmed Differential Comment . Platelet Estimate Low L Platelet Morphology Normal PT 25.1 H INR 2.5 Sodium 132 L Potassium 4.0 Chloride 100 Carbon Dioxide 23.5 Anion Gap 9 BUN 18 Creatinine 0.89 Estimated GFR 60 L Random Glucose 91 Calcium 8.2 L Impressions ITS Impressions Head CT 01/17/18 17:50 CONCLUSION: 1. Negative for an acute intracranial process 2. Minimal bilateral maxillary sinus disease . Chest X-Ray 01/20/18 07:00 CONCLUSION: The exam demonstrates diffuse interstitial fibrotic changes are probable superimposed congestive failure which appears new compared to previous of 2017. The patient is post median sternotomy and valvular replacement. Discharge Plan Discharge Disposition Patient Disposition: /Home Health Service Discharge Condition Condition: Stable Discharge Order Discharge Orders: Discharge Order (Routine); Ordered 01/20/18 Ordered By: Tiana Minaya Discharge Details Anticipated Discharge Date: 01/20/18 Discharge Comment: Followup with Dr. Soto in 1 week, call for that appt. Physicians Team Primary Care Provider: Ponce Soto Attending Provider: Teo Kent Other Providers: [facility] Rxs /Orders / Referrals /Forms Prescriptions: Continue losartan 50 mg Tablet 50 mg PO DAILY RF: 0 potassium chloride 10 mEq Tablet Extended Release 10 meq PO DAILY RF: 0 pravastatin 10 mg Tablet 10 mg PO DAILY RF: 0 warfarin 5 mg Tablet 5 mg PO DAILY RF: 0 bumetanide 1 mg Tablet 1 mg PO BID RF: 0 digoxin 125 mcg Tablet 0.125 mg PO DAILY RF: 0 bupropion HCl 300 mg Tablet Extended Release 24 Hr 300 mg PO QAM RF: 0 omeprazole 20 mg Tablet,Delayed Release (Dr/Ec) 20 mg PO DAILY RF: 0 Referrals: Ponce Soto MD [Primary Care Provider] - See Instructions (Followup in 1 week, call for that appt. ) Discharge Instructions Patient Printed Instructions: Hyponatremia (DC), Leukocytosis (DC), Altered Mental Status (ED) Status ED Status: Left Department Discharge Information Discharge Date/Time: 01/20/18 13:46
== END 2018-01-20 13:46 | disposition home health service (06) ==
LOC: NEPC 13:35 → NEDA 20:01 → NEPGCP 21:59
PROVIDERS: ADMIT Hospitalist; ATTEND Hospitalist

== ENCOUNTER 2018-02-10 15:03 | Inpatient (IN) ==
[2018-02-10] MEDS ORDERED: Morphine Sulfate Inj 2 MG/ML Vial IV.PUSH ONE (15:25)
[2018-02-10 15:40] LABS: Baso % (Auto) 0.1 % (0.0-2.0); Eos % (Auto) 0.1 % (0.0-4.0); Hematocrit 32.2 % (35.0-46.0); Lymph # (Auto) 0.2 th/mm3 (1.0-4.8); Lymph % (Auto) 1.4 % (9.0-44.0); Mean Corpuscular Hemoglobin 32.2 pg (27.0-34.0); Mean Corpuscular Volume 94.6 fL (80.0-100.0); Mean Platelet Volume 8.3 fL (7.0-11.0); Mono # (Auto) 0.7 th/mm3 (0.0-0.9); Mono % (Auto) 4.5 % (0.0-8.0); Neut # (Auto) 14.3 th/mm3 (1.8-7.7); Neut % (Auto) 93.9 % (16.0-70.0); Platelet Count 158 th/mm3 (150-450); Red Cell Distribution Width 16.2 % (11.6-17.2); White Blood Count 15.2 th/mm3 (4.0-11.0)
[2018-02-10 15:53] LABS: Alanine Aminotransferase 68 U/L (10-53); Albumin 3.5 g/dL (3.4-5.0); Anion Gap 7 meq/L (5-15); Aspartate Aminotransferase 97 U/L (15-37); Blood Urea Nitrogen 27 mg/dL (7-18); Calcium 9.2 mg/dL (8.5-10.1); Carbon Dioxide 28.2 meq/L (21.0-32.0); Chloride 99 meq/L (98-107); Glucose,Random 125 mg/dL (74-106); Magnesium 2.2 mg/dL (1.5-2.5); Potassium 3.8 meq/L (3.5-5.1); Sodium 134 meq/L (136-145)
[2018-02-10 15:56] LABS: Alkaline Phosphatase 68 U/L (45-117); Lipase 18004 U/L (73-393); Total Protein 7.3 g/dL (6.4-8.2)
[2018-02-10] MEDS ORDERED: Sod Chloride 0.9% Inj 1,000 ML IV.SIG ONE (16:02)
[2018-02-10 16:03] LABS: Monocytes 2 % (0-8)
[2018-02-10 16:04] LABS: Ovalocytes 1+; Platelet Estimate Normal (Normal); Platelet Morphology Normal (Normal)
--- NOTE | 2018-02-10 16:04 | XR ---
EXAM DATE: 02/10/2018 3:58 PM EST AGE/SEX: 87 years / Female INDICATIONS: Shortness of breath and posterior chest pain. CLINICAL DATA: This is the patient's initial encounter. Patient reports that signs and symptoms have been present for 1 day and indicates a pain score of 8/10. MEDICAL/SURGICAL HISTORY: None. CABG. [place] [facility] [place]. . FINDINGS: A single AP erect portable view of the chest was obtained and again demonstrates that the patient is status post median sternotomy. Artificial heart valves are again noted. There is mild bilateral pulmo nary opacities which are improved in the lung bases compared to the prior study. Which is improved at the lung bases. The heart size remains at the upper limits of normal. There are overlying electrocar diogram leads. CONCLUSION: Interval improvement in pulmonary opacities with mild perihilar and bibasilar residual. Electronically signed by: Delmar Coleman MD Board Certified Radiologist 02/10/2018 4:03 PM EST
--- NOTE | 2018-02-10 16:11 | ED ---
HPI General Chief Complaint: Back Pain/Injury Stated Complaint: Back Pain Time Seen by Provider: 02/10/18 15:07 Source: patient and EMS Mode of arrival: EMS Limitations: no limitations History of Present Illness HPI Narrative: 87-year-old female with PMH of CHF, A. fib, GERD, aortic valve replacement, on warfarin presents the ED via EMS for evaluation of 8/10 bilateral mid back pain. Onset this morning upon waking. Aching in quality, no alleviating or exacerbating factors reported. Patient also reports nausea and vomiting over the last few days. She denies fever, chills, changes in bowel habits. She states that she has "kidney problems." She endorses chronic urinary incontinence. She denies urinary urgency, dysuria, hematuria. She denies alcohol use. No treatment attempted before arrival. Related Data Home Medications Medication Instructions Recorded Confirmed bumetanide 1 mg PO BID 01/17/18 01/17/18 bupropion HCl 300 mg PO QAM 01/17/18 01/17/18 digoxin 0.125 mg PO DAILY 01/17/18 01/17/18 losartan 50 mg PO DAILY 01/17/18 01/17/18 omeprazole 20 mg PO DAILY 01/17/18 01/17/18 potassium chloride 10 meq PO DAILY 01/17/18 01/17/18 pravastatin 10 mg PO DAILY 01/17/18 01/17/18 warfarin 5 mg PO DAILY 01/17/18 01/17/18 Allergies Allergy/AdvReac Type Severity Reaction Status Date / Time phenol Allergy Severe body rash Verified 01/17/18 13:58 and swollen tounge phenol liquid Allergy Severe body rash Verified 01/17/18 13:58 and swollen tounge red dye Allergy Severe Rash Verified 01/17/18 13:58 Sulfa (Sulfonamide Allergy Severe Hives Verified 01/17/18 13:58 Antibiotics) benzonatate Allergy Rash Verified 01/17/18 14:00 diltiazem [From Cardizem] Allergy Rash Verified 01/17/18 14:00 lisinopril Allergy Rash Verified 01/17/18 14:00 Review of Systems ROS: all other systems reviewed are negative [facility] Medical History Medical History Afib (Acute) Kidney disease (Acute) CHF (congestive heart failure) (Acute) Depression (Acute) GERD (gastroesophageal reflux disease) (Acute) Hypercholesteremia (Acute) Hypertension (Acute) Surgical History Surgical History Aortic valve replaced (Acute) Social History Social History Substance History: No History of Abuse Second Hand Smoke Exposure: No Smoking Status: Former smoker How Often Do You Have a Drink Containing Alcohol: Never Recent Travel in [place] within the Last 8 Weeks: No Recent Out of Country Travel within the Last 8 Weeks: No Immunization History Tetanus Immunization: Unsure Exam Narrative Exam Narrative: GENERAL: Well-nourished, well-developed white female in no acute distress. SKIN: Focused skin assessment warm/dry. Mildly jaundiced. HEAD: Atraumatic. Normocephalic. EYES: Pupils equal and round. No scleral icterus. No injection or drainage. ENT: No nasal bleeding or discharge. Mucous membranes pink and moist. NECK: Trachea midline. No JVD. CARDIOVASCULAR: Regular rate and rhythm. No murmur appreciated. RESPIRATORY: No accessory muscle use. Clear to auscultation. Breath sounds equal bilaterally. GASTROINTESTINAL: Abdomen soft, nondistended. Hepatic and splenic margins not palpable. Tender to palpation in bilateral upper quadrants. Positive bilateral CVA tenderness. Active bowel sounds. MUSCULOSKELETAL: No obvious deformities. No clubbing. No cyanosis. No edema. NEUROLOGICAL: Awake and alert. No obvious cranial nerve deficits. Motor grossly within normal limits. Normal speech. PSYCHIATRIC: Appropriate mood and affect; insight and judgment normal. Course Initial Documented Vital Signs Temperature 98.8 F 02/10/18 15:17 Pulse Rate 73 02/10/18 15:17 Respiratory Rate 16 02/10/18 15:17 Blood Pressure 144/65 H 02/10/18 15:17 Pulse Oximetry 98 02/10/18 15:17 Last Documented Vital Signs Temperature 98.8 F 02/10/18 15:17 Pulse Rate 73 02/10/18 15:17 Respiratory Rate 16 02/10/18 15:17 Blood Pressure 144/65 H 02/10/18 15:17 Pulse Oximetry 98 02/10/18 15:17 Medical Decision Making EVELINE Attestation EVELINE supervised visit: Yes Attestation: I, Dr. Barton, have reviewed the advance practice practitioner's documentation and am in agreement, met with the patient face to face, made the diagnosis, and the medical decision making was done by me. *My assessment and Findings: Patient is an 87-year-old female who presents the emergency room with complaints of abdominal pain and back pain today. Patient was found to have acute pancreatitis with transaminitis. Lipase is 18,004. ua: Shows large leuk esterase, many bacteria, few white blood cell clumps, urine culture was sent. Patient was given dose of IV Rocephin. On physical exam, patient is jaundiced appearing, she does have pains to her epigastrium concerning for pancreatitis. Overall, she is well-appearing with no acute distress. CT of the abdomen and pelvis does show fluid and inflammation in the upper abdomen suggestive of acute pancreatitis. Her gallbladder does not appear distended on her ultrasound, there is at least 2 gallstones present. Plan to obtain right upper quadrant ultrasound to further evaluate the gallbladder. Patient will require admission to the hospital for further workup. [facility] Narrative Medical decision making narrative: 87-year-old female with PMH of CHF, A. fib, GERD, aortic valve replacement, on warfarin presents the ED via EMS for evaluation of 8/10 bilateral mid back pain. Onset this morning upon waking. Endorses accompanying N/V. She denies drinking ETOH. Afebrile on presentation. Physical exam reveals tenderness in the bilateral upper quadrants and bilateral CVA tenderness.1 9%. CBC shows white count of 15.2, hemoglobin 11.0. INR 2.5. CMP with bilirubin of 1.4 and elevated LFTs. Lipase 87215. UA positive for leukocyte esterase, bacteria and WBCs. CT abdomen and pelvis reveals fluid and inflammation of the upper abdomen and left upper quadrant appears to be centered around the pancreas suggesting acute pancreatitis. There is a small volume of free fluid in the pelvis. She is a very distended gallbladder with at least 2 gallstones. Gallbladder wall does not appear thickened and there are no definite surrounding inflammatory changes to suggest acute cholecystitis on this noncontrast studies. The patient was administered a liter of normal saline, 2 mg morphine. 1g Rocephin. She is resting comfortably in bed on recheck. Ultrasound of the gallbladder pending. Plan to admit. Patient and her are agreeable to the plan. I spoke with who agrees to accept the patient to the medicine service. Please see medicine notes for disposition. Medical Screen Exam Complete: Yes Emergency Medical Condition: Yes Differential Diagnosis Differential Diagnosis: Pancreatitis versus choledocholithiasis versus pyelonephritis versus other Lab Data Result diagrams: 02/10/18 15:20 02/10/18 15:20 Lab Results 02/10/18 02/10/18 02/10/18 Range/Units 15:20 15:20 16:00 WBC 15.2 H (4.0-11.0) th/mm3 RBC 3.40 L (4.00-5.30) mil/mm3 Hgb 11.0 L (11.6-15.3) gm/dL Hct 32.2 L (35.0-46.0) % MCV 94.6 (80.0-100.0) fL MCH 32.2 (27.0-34.0) pg MCHC 34.0 (32.0-36.0) % RDW 16.2 (11.6-17.2) % Plt Count 158 D (150-450) th/mm3 MPV 8.3 (7.0-11.0) fL Prelim Diff (Auto) Slide review pending Neut % (Auto) 93.9 H (16.0-70.0) % Lymph % (Auto) 1.4 L (9.0-44.0) % Rogers % (Auto) 4.5 (0.0-8.0) % Eos % (Auto) 0.1 (0.0-4.0) % Baso % (Auto) 0.1 (0.0-2.0) % Neut # (Auto) 14.3 H (1.8-7.7) th/mm3 Lymph # (Auto) 0.2 L (1.0-4.8) th/mm3 Rogers # (Auto) 0.7 (0.0-0.9) th/mm3 Eos # (Auto) 0.0 (0.0-0.4) th/mm3 Baso # (Auto) 0.0 (0.0-0.2) th/mm3 WBC Differential Manual diff final Seg Neuts % (Manual) 73 H (16-70) % Band Neuts % (Manual) 25 H (0-6) % Monocytes % (Manual) 2 (0-8) % Abs Neuts (Manual) 14.9 H (1.8-7.7) th/mm3 Differential Comment . Platelet Estimate Normal (Normal) Platelet Morphology Normal (Normal) Ovalocytes 1+ H (None) Sodium 134 L (136-145) meq/L Potassium 3.8 (3.5-5.1) meq/L Chloride 99 (98-107) meq/L Carbon Dioxide 28.2 (21.0-32.0) meq/L Anion Gap 7 (5-15) meq/L BUN 27 H (7-18) mg/dL Creatinine 1.16 H (0.50-1.00) mg/dL Random Glucose 125 H (74-106) mg/dL Calcium 9.2 (8.5-10.1) mg/dL Magnesium 2.2 (1.5-2.5) mg/dL Total Bilirubin 1.4 H (0.2-1.0) mg/dL AST 97 H (15-37) U/L ALT 68 H (10-53) U/L Alkaline Phosphatase 68 (45-117) U/L Total Protein 7.3 (6.4-8.2) g/dL Albumin 3.5 (3.4-5.0) g/dL Lipase 58761 H (73-393) U/L Urine Color Yellow (Yellw/Straw) Urine Clarity Cloudy H (Clear) Urine pH 7.0 (5.0-8.5) Ur Specific Sutton 1.009 (1.002-1.035) Urine Protein Negative (Neg-Trace) mg/dL Urine Glucose (UA) Negative (Negative) mg/dL Urine Ketones Negative (Negative) mg/dL Urine Occult Blood Negative (Negative) Urine Nitrate Negative (Negative) Urine Bilirubin Negative (Negative) Urine Urobilinogen Less than 2 (Less than 2) mg/dL Ur Leukocyte Esterase Large H (Negative) Urine RBC 2 (0-3) /hpf Urine WBC 92 H (0-5) /hpf Urine WBC Clumps Few H (None) Ur Squamous Epith Cells 1 (0-5) /hpf Urine Bacteria Many H (None) /hpf Micro UA Comment Culture indicated Ur Microscopic Review Not Reportable Urine Culture Comments Culture indicated Imaging Data Radiologist's impression: Abdomen/Pelvis CT 02/10/18 15:15 CONCLUSION: 1. There is fluid and inflammation in the upper abdomen and left upper quadrant that appears to be centered around the pancreas suggesting acute pancreatitis as the etiology. A small volume of free fluid is also present within the pelvis. Suggest correlating with appropriate laboratory values. 2. Very distended gallbladder with at least 2 gallstones. However, the gallbladder wall does not appear thickened and there are no definite surrounding inflammatory changes to suggest acute cholecystitis on this noncontrast examination. 3. Nonacute findings include small hiatal hernia and moderate atherosclerotic disease. Chest X-Ray 02/10/18 15:46 CONCLUSION: Interval improvement in pulmonary opacities with mild perihilar and bibasilar residual. Discharge Plan Discharge Disposition Patient Disposition: ED Admit(ED Internal Use Only) Discharge Order Discharge Orders: ED Use Only Admit Order (Routine); Ordered 02/10/18 Ordered By: Arianne Loera Physicians Team ED Provider: Tiana Barton ED Midlevel Provider: Arianne Loera Primary Care Provider: Ponce Soto Rxs /Orders / Referrals /Forms Prescriptions: No Action losartan 50 mg Tablet 50 mg PO DAILY RF: 0 potassium chloride 10 mEq Tablet Extended Release 10 meq PO DAILY RF: 0 pravastatin 10 mg Tablet 10 mg PO DAILY RF: 0 warfarin 5 mg Tablet 5 mg PO DAILY RF: 0 bumetanide 1 mg Tablet 1 mg PO BID RF: 0 digoxin 125 mcg Tablet 0.125 mg PO DAILY RF: 0 bupropion HCl 300 mg Tablet Extended Release 24 Hr 300 mg PO QAM RF: 0 omeprazole 20 mg Tablet,Delayed Release (Dr/Ec) 20 mg PO DAILY RF: 0 Discharge Interventions Interventions: Vital Signs Last Done: 02/10/18 15:17 Status ED Status: Pending Admission
[2018-02-10 16:27] LABS: Bacteria,Urine Many /hpf; Bilirubin,Urine Negative (Negative); Color,Urine Yellow (Yellw/Straw); Glucose,Urine (UA) Negative (Negative); Leukocyte Esterase,Urine Large (Negative); Nitrite,Urine Negative (Negative); Specific Gravity,Urine 1.009 (1.002-1.035); Squamous Epithelial Cell,Urine 1 /hpf (0-5)
[2018-02-10 16:29] LABS: Clarity,Urine Cloudy (Clear)
--- NOTE | 2018-02-10 16:42 | CT ---
EXAM DATE: 02/10/2018 4:32 PM EST AGE/SEX: 87 years / Female INDICATIONS: Bilateral lower back pain, right lower quadrant pain, nausea and vomiting. CLINICAL DATA: This is the patient's initial encounter. Patient reports that signs and symptoms have been present for 2 days and indicates a pain score of 7/10. MEDICAL/SURGICAL HISTORY: Gastroesophageal reflux disease. Chronic renal insufficiency. Conge stive heart failure. Hypertension, atrial fibrillation. Cholecystectomy. Aortic valve replacement. RADIATION DOSE: 4.91 CTDI (mGy) COMPARISON: [facility], CT ABDOMEN AND PELVIS W/O CONTRAST, 01/03/2018. . TECHNIQUE: Multiple contiguous axial images were obtained through the abdomen. Images were obtained using multiple row detector helical technique. Using automated exposure control and adjustment of the mA and/or kV according to patient size, radiation dose was kept as low as reasonably achievable to o btain optimal diagnostic quality images. DICOM format image data is available electronically for rev iew and comparison. FINDINGS: Lower chest: No acute abnormality is identified. There has been aortic and mitral valve replacement. Hepatobiliary: Liver density is normal. No focal lesion is seen on this noncontrast examination. Gall bladder is very distended and contains at least 2 high density stones. No wall thickening or definite surrounding inflammation is seen. There is no bile duct dilatation. Kidneys: No hydronephrosis, stone, or mass. Adrenal Glands: Within normal limits. Spleen: Within normal limits. Pancreas: There is peripancreatic fluid with mild edematous appearing pancreas. No focal pancreas abn ormality is appreciated on this noncontrast examination. Vascular: The aorta is nonaneurysmal. There is moderate atherosclerotic disease with tortuous abdomin al aorta. Bowel/Mesentery: There is a small hiatal hernia. Small bowel demonstrates no acute abnormality. The c olon demonstrates no acute finding. There is severe edema in the mesentery within the left upper quad rant and there is a small volume of free fluid in the pelvis. There is no free air. Abdominal Wall: No hernia is visualized. Retroperitoneum: No lymphadenopathy. Bladder: No wall thickening or mass. Reproductive: Uterus is absent. No adnexal abnormality is seen. Inguinal: No lymphadenopathy or hernia. Musculoskeletal: No acute osseous abnormality is identified. There is lumbar scoliosis with multileve l degenerative disc disease. CONCLUSION: 1. There is fluid and inflammation in the upper abdomen and left upper quadrant that appears to be c entered around the pancreas suggesting acute pancreatitis as the etiology. A small volume of free flu id is also present within the pelvis. Suggest correlating with appropriate laboratory values. 2. Very distended gallbladder with at least 2 gallstones. However, the gallbladder wall does not sarahi ear thickened and there are no definite surrounding inflammatory changes to suggest acute cholecystit is on this noncontrast examination. 3. Nonacute findings include small hiatal hernia and moderate atherosclerotic disease. Electronically signed by: Silvio Dawn MD Board Certified Radiologist 02/10/2018 4:41 PM EST
[2018-02-10] MEDS ORDERED: Acetaminophen 325 MG Tablet PO PRN (17:06)
[2018-02-10] MEDS ORDERED: Enoxaparin Inj 30 MG/0.3 ML Syringe SQ SCH (17:15)
--- NOTE | 2018-02-10 17:22 | US ---
EXAM DATE: 02/10/2018 5:15 PM EST AGE/SEX: 87 years / Female INDICATIONS: Right upper quadrant pain. CLINICAL DATA: This is the patient's initial encounter. Patient reports that signs and symptoms have been present for 1 day and indicates a pain score of 2/10. MEDICAL/SURGICAL HISTORY: Congestive heart failure. Gastroesophageal reflux disease. Hypercho lesterolemia. Atrial fibrillation. Hypertension. Kidney disease. . Aortic valve replacement. COMPARISON: [facility] – [place], CT ABDOMEN & PELVIS W/O CONTRAST, 02/10/2018. . MEASUREMENTS: Liver:__ 15.3 cm. Common Bile Duct:__ 7mm. FINDINGS: Liver: Normal echogenicity without focal lesion or ductal dilatation. Portal Vein: Hepatopedal flow seen in portal vein. Common Duct: No intraluminal mass or stone visualized. Gallbladder: Gallbladder is very distended and contains 2 small mobile stones. Wall thickness is 3 m m. [place] reports negative sonographic Odom sign. Pancreas: Visualized portions demonstrate no definite abnormality. Right Kidney: Mild increased echogenicity. No mass or hydronephrosis. Other: There is trace free fluid around the liver. CONCLUSION: 1. Very distended gallbladder with stones. However, there are no additional findings to suggest acut e cholecystitis. 2. Trace perihepatic free fluid. As described on the recent noncontrast CT, findings are suspicious for pancreatitis. Suggest correlating with amylase and lipase values. Electronically signed by: Silvio Dawn MD Board Certified Radiologist 02/10/2018 5:21 PM EST
[2018-02-10] MEDS ORDERED: Digoxin Inj 500 MCG/2 ML Ampul IV.PUSH SCH (17:30)
[2018-02-10] MEDS ORDERED: Morphine Sulfate Inj 2 MG/ML Vial IV.PUSH PRN (19:13)
--- NOTE | 2018-02-10 19:25 | P.HP ---
History of Present Illness Service: CP Adult med Primary Care Physician: Ponce Soto MD Chief Complaint: Abd pain, n/v History of Present Illness: 87-year-old female with PMH of A. fib, GERD, mechanical aortic valve replacement on chronic warfarin presents the ED via EMS for evaluation of 8/10 bilateral mid back pain. Onset this morning upon waking. Aching in quality, no alleviating or exacerbating factors reported. Patient also reports nausea and vomiting over the last few days, but was vomiting much more this AM. No new meds or unusual foods. No others sick in household. She denies fever, chills, changes in bowel habits. She endorses chronic urinary incontinence, but she denies urinary urgency, dysuria, hematuria. No treatment attempted before arrival. CT scan and lipase c/w pancreatitis and dilated GB with stones, but no GB wall thickening or obvious CBD obstruction. Has been given IVF, pain med and antiemetics in ER and is feeling a bit better. No more vomiting since in ER per pt report. PMH: History of aortic valve stenosis. S/P mechanical MVR Mitral and tricuspid valve regurgitation Mitral and tricuspid valve repair on March 25, 2010. She has history of chronic atrial fibrillation. History of gastroesophageal reflux disease. Lichens sclerosis. History of obstructive sleep apnea. History of hypertension in the past. Hyperlipidemia in the past. PSxH: History of bilateral knee replacements. BETO/BSO. History of bladder suspension surgery. Bladder fistula repair Colonoscopy EGD mitral and tricuspid valve annuloplasty AVR with mechanical valve paravaginal defect repair rotator cuff repair Social history: denies ETOH use or tobacco use Lives with friend who is her caregiver Has 2 living children Retired from [employer] in [employer] [facility]: Reviewed and noncontributory - Diagnosis (1) Pancreatitis, acute (2) Aortic valve replaced (3) GERD (gastroesophageal reflux disease) (4) Hypercholesteremia (5) Hypertension Inpatient Certification: I certify that the inpatient services were ordered in accordance with Medicare regulations governing the order. This includes certification that hospital inpatient services are reasonable and necessary and in the case of services not specified as inpatient-only under 42 CFR 419.22(n), that they are appropriately provided as inpatient services in accordance to with the 2-midnight benchmark under 43 CFR 412.3(e) Estimated Total Length of Stay (Days): 3 Plans for Post Hospital Care: Not yet determined Review of Systems Constitutional: Reports fatigue, Reports lack of energy, Reports weakness Ears, Nose, Mouth, and Throat: Reports abnormal hearing Cardiovascular: Denies chest pain, Denies chest pain at rest, Denies chest pain with activity, Denies excessive sweating, Denies fainting, Denies fast heart rate, Denies foot swelling, Denies generalized swelling, Denies irregular heart rhythm, Denies leg pain with activity, Denies leg sores, Denies leg swelling, Denies lightheadedness, Denies radiating jaw, neck or arm pain, Denies rapid, pounding, or irregular heartbeat, Denies shortness of breath, Denies shortness of breath with activity, Denies shortness of breath when lying down, Denies shortness of breath causing sudden awakening, Denies slow heart rate, Denies other Respiratory: Denies change in phlegm color, Denies chest congestion, Denies cough, Denies coughing up blood, Denies excessive phlegm production, Denies pain on inspiration, Denies pain with cough, Denies shortness of breath, Denies shortness of breath with activity, Denies snoring, Denies stridor, Denies wheezing, Denies other Gastrointestinal: Reports abdominal pain, Reports bloating, Reports nausea, Reports vomiting, Denies belching, Denies black, tarry stools, Denies bright, red blood in stools, Denies change in bowel habits, Denies constant urge to pass stool, Denies change in stools, Denies coffee ground vomit, Denies constipation, Denies cramping, Denies difficulty swallowing, Denies excessive passing of gas, Denies feeling full early, Denies heartburn, Denies incontinent of stools, Denies loose stools, Denies pain with swallowing, Denies vomiting blood, Denies other Genitourinary: Reports urinary incontinence Musculoskeletal: Reports back pain, Reports joint pain Neurologic: Reports abnormal hearing Psychiatric: Reports anxiety Hematologic/Lymphatic: Reports easy bleeding, Reports easy bruising PMFSH - History History Provided By: Patient - Medical History Medical History: Medical History (Last Updated 02/10/18 @ 19:21 by Chace Muñoz MD, PhD) Hypercholesteremia (Acute) GERD (gastroesophageal reflux disease) (Acute) Depression (Acute) Hypertension (Acute) Afib Kidney disease CHF (congestive heart failure) - Surgical History Surgical History: Surgical History (Last Updated 02/10/18 @ 19:21 by Chace Muñoz MD, PhD) Aortic valve replaced (Acute) History of arthroplasty of both knees History of bladder suspension procedure Status post BETO-BSO - Family History Family History: Family History (Last Updated 02/10/18 @ 19:18 by Chace Muñoz MD, PhD) Other Family history non-contributory - Social History I have reviewed the patient's Social History: Yes - Tobacco History Second Hand Smoke Exposure: No Tobacco Use In Past 30 Days: No Smoking Status: Never smoker - Alcohol History How Often Do You Have a Drink Containing Alcohol: Never - Substance Use History Substance History: No History of Abuse - Travel History Recent Travel in the [place] Within the Last 8 Weeks: No Recent Travel Out of the Country Within the Last 8 Weeks: No - Immunization History Tetanus Immunization: Unsure Medications and Allergies Active Medications: Active Medications Acetaminophen (Tylenol) 650 mg PO Q4H PRN PRN Reason: Temp > 100.4 Ondansetron HCl (Zofran Inj) 4 mg IV.PUSH Q6H PRN PRN Reason: NAUSEA OR VOMITING Sodium Chloride (Ns Flush) 2 ml IV.FLUSH PRN PRN PRN Reason: FLUSH AFTER USING IV ACCESS Sodium Chloride (Ns Flush) 2 ml IV.FLUSH BID MYLES Sodium Chloride (Ns Flush) 2 ml IV.FLUSH PRN PRN PRN Reason: FLUSH AFTER USING IV ACCESS Allergies Allergy/AdvReac Type Severity Reaction Status Date / Time phenol Allergy Severe body rash Verified 01/17/18 13:58 and swollen tounge phenol liquid Allergy Severe body rash Verified 01/17/18 13:58 and swollen tounge red dye Allergy Severe Rash Verified 01/17/18 13:58 Sulfa (Sulfonamide Allergy Severe Hives Verified 01/17/18 13:58 Antibiotics) benzonatate Allergy Rash Verified 01/17/18 14:00 diltiazem [From Cardizem] Allergy Rash Verified 01/17/18 14:00 lisinopril Allergy Rash Verified 01/17/18 14:00 Home Medications Medication Instructions Recorded Confirmed Type bumetanide 1 mg PO BID 01/17/18 01/17/18 History bupropion HCl 300 mg PO QAM 01/17/18 01/17/18 History digoxin 0.125 mg PO DAILY 01/17/18 01/17/18 History losartan 50 mg PO DAILY 01/17/18 01/17/18 History omeprazole 20 mg PO DAILY 01/17/18 01/17/18 History potassium chloride 10 meq PO DAILY 01/17/18 01/17/18 History pravastatin 10 mg PO DAILY 01/17/18 01/17/18 History warfarin 5 mg PO DAILY 01/17/18 01/17/18 History Exam Vital signs: Vital Signs 02/10/18 15:15 02/10/18 15:17 02/10/18 17:07 Temperature 98.8 F Pulse Rate 80 73 Respiratory Rate 16 Blood Pressure 144/65 H Pulse Oximetry 94 L 98 95 Intake & Output 02/10/18 02/10/18 02/11/18 06:59 18:59 06:59 Intake Total 1100 / 1100 Balance 1100 / 1100 Weight 52.163 kg Intake: IV 1100 / 1100 NS Inj 1,000 ML @ Wide Open IV. 1000 / 1000 SIG BOLUS ONE Rx#:[id number] Rocephin Inj 1,000 MG In NS Inj 100 / 100 100 ML @ 200 mls/hr IV.SIG ONCE ONE Rx#:[id number] Narrative: GENERAL: thin, pleasant, cooperative, a/o, nad SKIN: Warm and dry. slightly jaundiced face, upper torso. Venous stasis derm BLE HEAD: Atraumatic. Normocephalic. EYES: Pupils equal and round. No scleral icterus. No injection or drainage. ENT: No nasal bleeding or discharge. Mucous membranes pink and moist. NECK: Trachea midline. No JVD. CARDIOVASCULAR: Regular rate and rhythm. midsystolic click c/w mech valve, no rub RESPIRATORY: No accessory muscle use. Clear to auscultation. Breath sounds equal bilaterally. GASTROINTESTINAL: Abdomen soft, mildly distended, ttp globally with vol guarding in epigastrium, no rebound. splenic margins not palpable. MUSCULOSKELETAL: Extremities without clubbing, cyanosis. No obvious deformities. OsteoA changes in LE. Trace edema in feet and distal LE. NEUROLOGICAL: Awake and alert. No obvious cranial nerve deficits. Motor grossly within normal limits. Five out of 5 muscle strength in the arms and legs. Normal speech. PSYCHIATRIC: Appropriate mood and affect; insight and judgment normal. Results - Labs CBC & Chem 7: 02/10/18 15:20 02/10/18 15:20 Labs: Laboratory Results - last 24 hr 02/10/18 02/10/18 02/10/18 15:20 15:20 16:00 WBC 15.2 H RBC 3.40 L Hgb 11.0 L Hct 32.2 L MCV 94.6 MCH 32.2 MCHC 34.0 RDW 16.2 Plt Count 158 D MPV 8.3 Prelim Diff (Auto) Slide review pending Neut % (Auto) 93.9 H Lymph % (Auto) 1.4 L [place] % (Auto) 4.5 Eos % (Auto) 0.1 Baso % (Auto) 0.1 Neut # (Auto) 14.3 H Lymph # (Auto) 0.2 L [place] # (Auto) 0.7 Eos # (Auto) 0.0 Baso # (Auto) 0.0 WBC Differential Manual diff final Seg Neuts % (Manual) 73 H Band Neuts % (Manual) 25 H Monocytes % (Manual) 2 Abs Neuts (Manual) 14.9 H Differential Comment . Platelet Estimate Normal Platelet Morphology Normal Ovalocytes 1+ H Sodium 134 L Potassium 3.8 Chloride 99 Carbon Dioxide 28.2 Anion Gap 7 BUN 27 H Creatinine 1.16 H Random Glucose 125 H Calcium 9.2 Magnesium 2.2 Total Bilirubin 1.4 H AST 97 H ALT 68 H Alkaline Phosphatase 68 Total Protein 7.3 Albumin 3.5 Lipase 95245 H Urine Color Yellow Urine Clarity Cloudy H Urine pH 7.0 Ur Specific [place] 1.009 Urine Protein Negative Urine Glucose (UA) Negative Urine Ketones Negative Urine Occult Blood Negative Urine Nitrate Negative Urine Bilirubin Negative Urine Urobilinogen Less than 2 Ur Leukocyte Esterase Large H Urine RBC 2 Urine WBC 92 H Urine WBC Clumps Few H Ur Squamous Epith Cells 1 Urine Bacteria Many H Micro UA Comment Culture indicated Ur Microscopic Review Not Reportable Urine Culture Comments Culture indicated - Imaging Impressions Abdomen/Pelvis CT 02/10/18 15:15 CONCLUSION: 1. There is fluid and inflammation in the upper abdomen and left upper quadrant that appears to be centered around the pancreas suggesting acute pancreatitis as the etiology. A small volume of free fluid is also present within the pelvis. Suggest correlating with appropriate laboratory values. 2. Very distended gallbladder with at least 2 gallstones. However, the gallbladder wall does not appear thickened and there are no definite surrounding inflammatory changes to suggest acute cholecystitis on this noncontrast examination. 3. Nonacute findings include small hiatal hernia and moderate atherosclerotic disease. Chest X-Ray 02/10/18 15:46 CONCLUSION: Interval improvement in pulmonary opacities with mild perihilar and bibasilar residual. Gallbladder Ultrasound 02/10/18 16:50 CONCLUSION: 1. Very distended gallbladder with stones. However, there are no additional findings to suggest acute cholecystitis. 2. Trace perihepatic free fluid. As described on the recent noncontrast CT, findings are suspicious for pancreatitis. Suggest correlating with amylase and lipase values. Caprini VTE Risk Assessment Caprini VTE Risk Assessment: Moderate/High Risk (score >= 2) Caprini Risk Assessment Model: Point Value = 1 Point Value = 2 Point Value = 3 Point Value = 5 Age 41-60 Minor surgery BMI > 25 kg/m2 Swollen legs Varicose veins or History of unexplained or recurrent spontaneous Oral contraceptives or hormone replacement Sepsis (< 1 month) Serious lung disease, including pneumonia (< 1 month) Abnormal pulmonary function Acute myocardial infarction Congestive heart failure (< 1 month) History of inflammatory bowel disease Medical patient at bed rest Age 61-74 Arthroscopic surgery Major open surgery (> 45 min) Laparoscopic surgery (> 45 min) Malignancy Confined to bed (> 72 hours) Immobilizing plaster cast Central venous access Age >= 75 History of VTE Family history of VTE Factor V Leiden Prothrombin [id number] Lupus anticoagulant Anticardiolipin antibodies Elevated serum homocysteine Heparin-induced thrombocytopenia Other congenital or acquired thrombophilia Stroke (< 1 month) Elective arthroplasty Hip, pelvis, or leg fracture Acute spinal cord injury (< 1 month) Prophylaxis Regimen: Total Risk Factor Score Risk Level Prophylaxis Regimen 0-1 Low Early ambulation 2 Moderate Order ONE of the following: *Sequential Compression Device (SCD) *Heparin 5000 units SQ BID 3-4 Higher Order ONE of the following medications: *Heparin 5000 units SQ TID *Enoxaparin/Lovenox 40 mg SQ daily (WT < 150 kg, CrCl > 30 mL/min) *Enoxaparin/Lovenox 30 mg SQ daily (WT < 150 kg, CrCl > 10-29 mL/min) *Enoxaparin/Lovenox 30 mg SQ BID (WT < 150 kg, CrCl > 30 mL/min) AND/OR *Sequential Compression Device (SCD) 5 or more Highest Order ONE of the following medications: *Heparin 5000 units SQ TID (Preferred with Epidurals) *Enoxaparin/Lovenox 40 mg SQ daily (WT < 150 kg, CrCl > 30 mL/min) *Enoxaparin/Lovenox 30 mg SQ daily (WT < 150 kg, CrCl > 10-29 mL/min) *Enoxaparin/Lovenox 30 mg SQ BID (WT < 150 kg, CrCl > 30 mL/min) AND *Sequential Compression Device (SCD) Assessment and Plan - Assessment (1) Pancreatitis, acute Code(s): K85.90 - Acute pancreatitis without necrosis or infection, unspecified Status: Acute Plan: ? etiology. No new meds per pt. Possible passage of gallstone or intermittent obs from sludge. Continue antiemetics, pain meds, NPO for now. GI has been consulted. (2) Aortic valve replaced Code(s): Z95.2 - Presence of prosthetic heart valve Status: Chronic Plan: Mechanical valve in place. Continue warfarin. Check INR. May use Lovenox starting tomorrow if she can't take her warfarin. (3) GERD (gastroesophageal reflux disease) Code(s): K21.9 - Gastro-esophageal reflux disease without esophagitis Status: Acute Plan: continue PPI (4) Hypercholesteremia Code(s): E78.00 - Pure hypercholesterolemia, unspecified Status: Acute Plan: hold med for now (5) Hypertension Code(s): I10 - Essential (primary) hypertension Status: Acute Plan: BP OK currently. Hopefully can resume BP meds tomorrow if taking PO. - Plan Discussed Condition With: Pt, Er provider, Dr Benton (5) Hypertension Qualifiers: Hypertension type: essential hypertension Qualified Code(s): I10 - Essential (primary) hypertension
--- NOTE | 2018-02-10 20:06 | P.CONGI ---
History of Present Illness Consult date: 02/10/18 Consult reason: Pancreatitis Possible choledocholithiasis Chief complaint: Pancreatitis, gallstones, jaundice, UTI History of Present Illness: This patient is an 87-year-old female with past medical history significant for aortic valve stenosis, mitral and tricuspid valve regurgitation, atrial fibrillation, GERD, lichen sclerosus, obstructive sleep apnea, hypertension and hyperlipidemia. Surgical history significant for bilateral knee replacements, total abdominal hysterectomy, bladder suspension, bladder fistula repair, mitral and tricuspid valve annuloplasty, AVR with mechanical valve, paravaginal defect repair and rotator cuff repair. Patient presented to [place] emergency room with complaint of bilateral mid back pain. Patient states onset of pain this a.m. She describes same as an ache without any known alleviating or aggravating factors. Patient also reports accompanying nausea and vomiting over the last 2-3 days. She reports increased frequency of vomiting this a.m. Patient denies any fever or chills. Denies any sick contacts contacts or recent travel. Patient denies any change in bowel habits. She states she has a normal soft BM daily. CT scan and labs in the ER likely represent pancreatitis with dilated gallbladder with stones. No gallbladder wall thickening or common bile duct obstruction noted. Our service has been consulted to evaluate patient for pancreatitis/possible choledocholithiasis <Cyndy Méndez - Last Filed: 02/10/18 19:52> Review of Systems All other systems reviewed negative except as stated in HPI <Cyndy Méndez - Last Filed: 02/10/18 19:52> PMFSH - History History Provided By: Patient - Medical History Medical History: Medical History (Last Updated 02/10/18 @ 19:21 by Chace Muñoz MD, PhD) Hypercholesteremia (Acute) GERD (gastroesophageal reflux disease) (Acute) Depression (Acute) Hypertension (Acute) Afib Kidney disease CHF (congestive heart failure) - Surgical History Surgical History: Surgical History (Last Updated 02/10/18 @ 19:21 by Chace Muñoz MD, PhD) Aortic valve replaced (Chronic) History of arthroplasty of both knees History of bladder suspension procedure Status post BETO-BSO - Family History Family History: Family History (Last Updated 02/10/18 @ 19:18 by Chace Muñoz MD, PhD) Other Family history non-contributory - Tobacco History Second Hand Smoke Exposure: No Tobacco Use In Past 30 Days: No Smoking Status: Never smoker - Alcohol History How Often Do You Have a Drink Containing Alcohol: Never - Substance Use History Substance History: No History of Abuse - Travel History Recent Travel in the [place] Within the Last 8 Weeks: No Recent Travel Out of the Country Within the Last 8 Weeks: No - Immunization History Tetanus Immunization: Unsure <Cyndy Méndez - Last Filed: 02/10/18 19:52> - Medical History Medical History: Medical History (Last Updated 02/10/18 @ 19:21 by Chace Muñoz MD, PhD) Hypercholesteremia (Acute) GERD (gastroesophageal reflux disease) (Acute) Depression (Acute) Hypertension (Acute) Afib Kidney disease CHF (congestive heart failure) - Surgical History Surgical History: Surgical History (Last Updated 02/10/18 @ 19:21 by Chace Muñoz MD, PhD) Aortic valve replaced (Chronic) History of arthroplasty of both knees History of bladder suspension procedure Status post BETO-BSO - Family History Family History: Family History (Last Updated 02/10/18 @ 19:18 by Chace Muñoz MD, PhD) Other Family history non-contributory <Gordo Clay - Last Filed: 02/11/18 08:48> Medications and Allergies Active Medications: Active Medications Acetaminophen (Tylenol) 650 mg PO Q4H PRN PRN Reason: Temp > 100.4 Morphine Sulfate (Morphine Inj) 2 mg IV.PUSH Q4H PRN PRN Reason: pain level 3-10 Ondansetron HCl (Zofran Inj) 4 mg IV.PUSH Q6H PRN PRN Reason: NAUSEA OR VOMITING Sodium Chloride (Ns Flush) 2 ml IV.FLUSH PRN PRN PRN Reason: FLUSH AFTER USING IV ACCESS Sodium Chloride (Ns Flush) 2 ml IV.FLUSH BID MYLES Sodium Chloride (Ns Flush) 2 ml IV.FLUSH PRN PRN PRN Reason: FLUSH AFTER USING IV ACCESS <Cyndy Méndez - Last Filed: 02/10/18 19:52> Active Medications: Active Medications Acetaminophen (Tylenol) 650 mg PO Q4H PRN PRN Reason: Temp > 100.4 Ceftriaxone Sodium 1,000 mg/ (Sodium Chloride) 100 mls @ 200 mls/hr IV.SIG Q24H COUNT INCLUDES THE [facility] Morphine Sulfate (Morphine Inj) 2 mg IV.PUSH Q4H PRN PRN Reason: pain level 3-10 Ondansetron HCl (Zofran Inj) 4 mg IV.PUSH Q6H PRN PRN Reason: NAUSEA OR VOMITING Sodium Chloride (Ns Flush) 2 ml IV.FLUSH PRN PRN PRN Reason: FLUSH AFTER USING IV ACCESS Sodium Chloride (Ns Flush) 2 ml IV.FLUSH BID COUNT INCLUDES THE [facility] Last Admin: 02/10/18 20:56 Dose: 2 ml Sodium Chloride (Ns Flush) 2 ml IV.FLUSH PRN PRN PRN Reason: FLUSH AFTER USING IV ACCESS <Gordo Clay - Last Filed: 02/11/18 08:48> Allergies Allergy/AdvReac Type Severity Reaction Status Date / Time phenol Allergy Severe body rash Verified 01/17/18 13:58 and swollen tounge phenol liquid Allergy Severe body rash Verified 01/17/18 13:58 and swollen tounge red dye Allergy Severe Rash Verified 01/17/18 13:58 Sulfa (Sulfonamide Allergy Severe Hives Verified 01/17/18 13:58 Antibiotics) benzonatate Allergy Rash Verified 01/17/18 14:00 diltiazem [From Cardizem] Allergy Rash Verified 01/17/18 14:00 lisinopril Allergy Rash Verified 01/17/18 14:00 Home Medications Medication Instructions Recorded Confirmed Type bumetanide 1 mg PO BID 01/17/18 02/10/18 History bupropion HCl 300 mg PO QAM 01/17/18 02/10/18 History digoxin 0.125 mg PO DAILY 01/17/18 02/10/18 History losartan 50 mg PO DAILY 01/17/18 02/10/18 History omeprazole 20 mg PO DAILY 01/17/18 02/10/18 History potassium chloride 10 meq PO DAILY 01/17/18 02/10/18 History pravastatin 10 mg PO DAILY 01/17/18 02/10/18 History warfarin 5 mg PO DAILY 01/17/18 02/10/18 History Exam Vital signs: Vital Signs 02/10/18 15:15 02/10/18 15:17 02/10/18 17:07 Temperature 98.8 F Pulse Rate 80 73 Respiratory Rate 16 Blood Pressure 144/65 H Pulse Oximetry 94 L 98 95 Intake & Output 02/10/18 02/10/18 02/11/18 06:59 18:59 06:59 Intake Total 1100 / 1100 Balance 1100 / 1100 Weight 52.163 kg Intake: IV 1100 / 1100 NS Inj 1,000 ML @ Wide Open IV. 1000 / 1000 SIG BOLUS ONE Rx#:[id number] Rocephin Inj 1,000 MG In NS Inj 100 / 100 100 ML @ 200 mls/hr IV.SIG ONCE ONE Rx#:[id number] - Constitutional no acute distress, thin, cooperative - Routine HEENT Exam Head: Present: normocephalic - Routine Respiratory Exam Present: CTA bilaterally. Absent: accessory muscle use - Routine Cardiovascular Exam Present: RRR, click Comments: Mechanical valve - Routine Abdominal Exam Present: soft, normoactive bowel sounds, tenderness Comments: Epigastric tenderness on exam with palpation - Routine Extremities Exam Present: pulses intact. Absent: edema - Routine Skin Exam Present: dry, warm - Routine Neurological Exam Present: alert <Méndez,Cyndy - Last Filed: 02/10/18 19:52> Vital signs: Vital Signs 02/10/18 15:15 02/10/18 15:17 02/10/18 17:07 Temperature 98.8 F Pulse Rate 80 73 Respiratory Rate 16 Blood Pressure 144/65 H Pulse Oximetry 94 L 98 95 02/10/18 19:40 02/10/18 20:00 02/11/18 00:10 Temperature 98.1 F 97.6 F Pulse Rate 88 80 Respiratory Rate 17 17 Blood Pressure 150/59 H 130/54 L Pulse Oximetry 97 96 96 02/11/18 03:55 02/11/18 08:00 Temperature 98 F 97.7 F Pulse Rate 82 74 Respiratory Rate 17 17 Blood Pressure 111/56 L 125/61 Pulse Oximetry 97 96 Intake & Output 02/10/18 02/11/18 02/11/18 18:59 06:59 18:59 Intake Total 1100 / 1100 0 / 0 Output Total 150 / 150 Balance 1100 / 1100 -150 / -150 Weight 52.163 kg 50.4 kg Intake: IV 1100 / 1100 NS Inj 1,000 ML @ Wide Open IV. 1000 / 1000 SIG BOLUS ONE Rx#:[id number] Rocephin Inj 1,000 MG In NS Inj 100 / 100 100 ML @ 200 mls/hr IV.SIG ONCE ONE Rx#:[id number] Oral 0 / 0 Output: Urine 150 / 150 Other: # Voids 3 Date of Last Bowel Movement 02/10/18 # Bowel Movements 0 Weight On Admission 50.4 kg <ObedAdarshGordo - Last Filed: 02/11/18 08:48> Results - Labs CBC & Chem 7: 02/10/18 15:20 02/10/18 15:20 Labs: Laboratory Results - last 24 hr 02/10/18 02/10/18 02/10/18 15:20 15:20 16:00 WBC 15.2 H RBC 3.40 L Hgb 11.0 L Hct 32.2 L MCV 94.6 MCH 32.2 MCHC 34.0 RDW 16.2 Plt Count 158 D MPV 8.3 Prelim Diff (Auto) Slide review pending Neut % (Auto) 93.9 H Lymph % (Auto) 1.4 L [place] % (Auto) 4.5 Eos % (Auto) 0.1 Baso % (Auto) 0.1 Neut # (Auto) 14.3 H Lymph # (Auto) 0.2 L [place] # (Auto) 0.7 Eos # (Auto) 0.0 Baso # (Auto) 0.0 WBC Differential Manual diff final Seg Neuts % (Manual) 73 H Band Neuts % (Manual) 25 H Monocytes % (Manual) 2 Abs Neuts (Manual) 14.9 H Differential Comment . Platelet Estimate Normal Platelet Morphology Normal Ovalocytes 1+ H Sodium 134 L Potassium 3.8 Chloride 99 Carbon Dioxide 28.2 Anion Gap 7 BUN 27 H Creatinine 1.16 H Random Glucose 125 H Calcium 9.2 Magnesium 2.2 Total Bilirubin 1.4 H AST 97 H ALT 68 H Alkaline Phosphatase 68 Total Protein 7.3 Albumin 3.5 Lipase 86688 H Urine Color Yellow Urine Clarity Cloudy H Urine pH 7.0 Ur Specific [place] 1.009 Urine Protein Negative Urine Glucose (UA) Negative Urine Ketones Negative Urine Occult Blood Negative Urine Nitrate Negative Urine Bilirubin Negative Urine Urobilinogen Less than 2 Ur Leukocyte Esterase Large H Urine RBC 2 Urine WBC 92 H Urine WBC Clumps Few H Ur Squamous Epith Cells 1 Urine Bacteria Many H Micro UA Comment Culture indicated Ur Microscopic Review Not Reportable Urine Culture Comments Culture indicated Digoxin 02/10/18 18:45 WBC RBC Hgb Hct MCV MCH MCHC RDW Plt Count MPV Prelim Diff (Auto) Neut % (Auto) Lymph % (Auto) [place] % (Auto) Eos % (Auto) Baso % (Auto) Neut # (Auto) Lymph # (Auto) [place] # (Auto) Eos # (Auto) Baso # (Auto) WBC Differential Seg Neuts % (Manual) Band Neuts % (Manual) Monocytes % (Manual) Abs Neuts (Manual) Differential Comment Platelet Estimate Platelet Morphology Ovalocytes Sodium Potassium Chloride Carbon Dioxide Anion Gap BUN Creatinine Random Glucose Calcium Magnesium Total Bilirubin AST ALT Alkaline Phosphatase Total Protein Albumin Lipase Urine Color Urine Clarity Urine pH Ur Specific [place] Urine Protein Urine Glucose (UA) Urine Ketones Urine Occult Blood Urine Nitrate Urine Bilirubin Urine Urobilinogen Ur Leukocyte Esterase Urine RBC Urine WBC Urine WBC Clumps Ur Squamous Epith Cells Urine Bacteria Micro UA Comment Ur Microscopic Review Urine Culture Comments Digoxin 1.4 - Imaging Impressions Abdomen/Pelvis CT 02/10/18 15:15 CONCLUSION: 1. There is fluid and inflammation in the upper abdomen and left upper quadrant that appears to be centered around the pancreas suggesting acute pancreatitis as the etiology. A small volume of free fluid is also present within the pelvis. Suggest correlating with appropriate laboratory values. 2. Very distended gallbladder with at least 2 gallstones. However, the gallbladder wall does not appear thickened and there are no definite surrounding inflammatory changes to suggest acute cholecystitis on this noncontrast examination. 3. Nonacute findings include small hiatal hernia and moderate atherosclerotic disease. Chest X-Ray 02/10/18 15:46 CONCLUSION: Interval improvement in pulmonary opacities with mild perihilar and bibasilar residual. Gallbladder Ultrasound 02/10/18 16:50 CONCLUSION: 1. Very distended gallbladder with stones. However, there are no additional findings to suggest acute cholecystitis. 2. Trace perihepatic free fluid. As described on the recent noncontrast CT, findings are suspicious for pancreatitis. Suggest correlating with amylase and lipase values. <Cyndy Méndez - Last Filed: 02/10/18 19:52> - Labs CBC & Chem 7: 02/11/18 04:17 02/11/18 04:17 Labs: Laboratory Results - last 24 hr 02/10/18 02/10/18 02/10/18 15:20 15:20 16:00 WBC 15.2 H RBC 3.40 L Hgb 11.0 L Hct 32.2 L MCV 94.6 MCH 32.2 MCHC 34.0 RDW 16.2 Plt Count 158 D MPV 8.3 Prelim Diff (Auto) Slide review pending Neut % (Auto) 93.9 H Lymph % (Auto) 1.4 L [place] % (Auto) 4.5 Eos % (Auto) 0.1 Baso % (Auto) 0.1 Neut # (Auto) 14.3 H Lymph # (Auto) 0.2 L [place] # (Auto) 0.7 Eos # (Auto) 0.0 Baso # (Auto) 0.0 WBC Differential Manual diff final Seg Neuts % (Manual) 73 H Band Neuts % (Manual) 25 H Monocytes % (Manual) 2 Abs Neuts (Manual) 14.9 H Differential Comment . Platelet Estimate Normal Platelet Morphology Normal Ovalocytes 1+ H PT INR Sodium 134 L Potassium 3.8 Chloride 99 Carbon Dioxide 28.2 Anion Gap 7 BUN 27 H Creatinine 1.16 H Random Glucose 125 H Calcium 9.2 Magnesium 2.2 Total Bilirubin 1.4 H AST 97 H ALT 68 H Alkaline Phosphatase 68 Total Protein 7.3 Albumin 3.5 Lipase 06243 H Urine Color Yellow Urine Clarity Cloudy H Urine pH 7.0 Ur Specific [place] 1.009 Urine Protein Negative Urine Glucose (UA) Negative Urine Ketones Negative Urine Occult Blood Negative Urine Nitrate Negative Urine Bilirubin Negative Urine Urobilinogen Less than 2 Ur Leukocyte Esterase Large H Urine RBC 2 Urine WBC 92 H Urine WBC Clumps Few H Ur Squamous Epith Cells 1 Urine Bacteria Many H Micro UA Comment Culture indicated Ur Microscopic Review Not Reportable Urine Culture Comments Culture indicated Digoxin 02/10/18 02/11/18 02/11/18 18:45 00:30 04:17 WBC 12.7 H RBC 3.14 L Hgb 10.2 L Hct 29.5 L MCV 94.0 MCH 32.5 MCHC 34.6 RDW 15.9 Plt Count 125 L MPV 8.9 Prelim Diff (Auto) Neut % (Auto) 86.8 H Lymph % (Auto) 5.8 L [place] % (Auto) 7.0 Eos % (Auto) 0.2 Baso % (Auto) 0.2 Neut # (Auto) 11.0 H Lymph # (Auto) 0.7 L [place] # (Auto) 0.9 Eos # (Auto) 0.0 Baso # (Auto) 0.0 WBC Differential . Seg Neuts % (Manual) Band Neuts % (Manual) Monocytes % (Manual) Abs Neuts (Manual) Differential Comment Auto diff final Platelet Estimate Platelet Morphology Ovalocytes PT 21.7 H INR 2.1 Sodium Potassium Chloride Carbon Dioxide Anion Gap BUN Creatinine Random Glucose Calcium Magnesium Total Bilirubin AST ALT Alkaline Phosphatase Total Protein Albumin Lipase Urine Color Urine Clarity Urine pH Ur Specific [place] Urine Protein Urine Glucose (UA) Urine Ketones Urine Occult Blood Urine Nitrate Urine Bilirubin Urine Urobilinogen Ur Leukocyte Esterase Urine RBC Urine WBC Urine WBC Clumps Ur Squamous Epith Cells Urine Bacteria Micro UA Comment Ur Microscopic Review Urine Culture Comments Digoxin 1.4 02/11/18 04:17 WBC RBC Hgb Hct MCV MCH MCHC RDW Plt Count MPV Prelim Diff (Auto) Neut % (Auto) Lymph % (Auto) [place] % (Auto) Eos % (Auto) Baso % (Auto) Neut # (Auto) Lymph # (Auto) [place] # (Auto) Eos # (Auto) Baso # (Auto) WBC Differential Seg Neuts % (Manual) Band Neuts % (Manual) Monocytes % (Manual) Abs Neuts (Manual) Differential Comment Platelet Estimate Platelet Morphology Ovalocytes PT INR Sodium 138 Potassium 3.9 Chloride 103 Carbon Dioxide 26.1 Anion Gap 9 BUN 29 H Creatinine 1.26 H Random Glucose 81 Calcium 8.7 Magnesium Total Bilirubin 0.7 AST 59 H ALT 51 Alkaline Phosphatase 53 Total Protein 6.8 Albumin 3.0 L Lipase 8439 H Urine Color Urine Clarity Urine pH Ur Specific [place] Urine Protein Urine Glucose (UA) Urine Ketones Urine Occult Blood Urine Nitrate Urine Bilirubin Urine Urobilinogen Ur Leukocyte Esterase Urine RBC Urine WBC Urine WBC Clumps Ur Squamous Epith Cells Urine Bacteria Micro UA Comment Ur Microscopic Review Urine Culture Comments Digoxin - Imaging Impressions Abdomen/Pelvis CT 02/10/18 15:15 CONCLUSION: 1. There is fluid and inflammation in the upper abdomen and left upper quadrant that appears to be centered around the pancreas suggesting acute pancreatitis as the etiology. A small volume of free fluid is also present within the pelvis. Suggest correlating with appropriate laboratory values. 2. Very distended gallbladder with at least 2 gallstones. However, the gallbladder wall does not appear thickened and there are no definite surrounding inflammatory changes to suggest acute cholecystitis on this noncontrast examination. 3. Nonacute findings include small hiatal hernia and moderate atherosclerotic disease. Chest X-Ray 02/10/18 15:46 CONCLUSION: Interval improvement in pulmonary opacities with mild perihilar and bibasilar residual. Gallbladder Ultrasound 02/10/18 16:50 CONCLUSION: 1. Very distended gallbladder with stones. However, there are no additional findings to suggest acute cholecystitis. 2. Trace perihepatic free fluid. As described on the recent noncontrast CT, findings are suspicious for pancreatitis. Suggest correlating with amylase and lipase values. <Gordo Clay - Last Filed: 02/11/18 08:48> Assessment and Plan (1) Cholelithiasis Status: Acute Code(s): K80.20 - Calculus of gallbladder without cholecystitis without obstruction (2) Choledocholithiasis Status: Acute Code(s): K80.50 - Calculus of bile duct without cholangitis or cholecystitis without obstruction (3) Pancreatitis, acute Status: Acute Code(s): K85.90 - Acute pancreatitis without necrosis or infection, unspecified - Plan This patient is an 87-year-old female with past medical history significant for aortic valve stenosis, mitral and tricuspid valve regurgitation, atrial fibrillation, GERD, lichen sclerosus, obstructive sleep apnea, hypertension and hyperlipidemia. Surgical history significant for bilateral knee replacements, total abdominal hysterectomy, bladder suspension, bladder fistula repair, mitral and tricuspid valve annuloplasty, AVR with mechanical valve, paravaginal defect repair and rotator cuff repair. Patient presented to [place] emergency room with complaint of bilateral mid back pain. Patient states onset of pain this a.m. She describes same as an ache without any known alleviating or aggravating factors. Patient also reports accompanying nausea and vomiting over the last 2-3 days. She reports increased frequency of vomiting this a.m. Patient denies any fever or chills. Denies any sick contacts contacts or recent travel. Patient denies any change in bowel habits. She states she has a normal soft BM daily. CT scan and labs in the ER likely represent pancreatitis with dilated gallbladder with stones. No gallbladder wall thickening or common bile duct obstruction noted. Our service has been consulted to evaluate patient for pancreatitis/possible choledocholithiasis Pancreatitis Cholelithiasis Patient presented with 2-3-day history of bilateral mid back pain and nausea vomiting. Patient denies any fever or chills. 02/10/2018 CT abdomen pelvis reveal the following-- There is fluid and inflammation in the upper abdomen and left upper quadrant that appears to be centered around the pancreas suggesting acute pancreatitis as the etiology. A small volume of free fluid is also present within the pelvis. Suggest correlating with appropriate laboratory values. Very distended gallbladder with at least 2 gallstones. However, the gallbladder wall does not appear thickened and there are no definite surrounding inflammatory changes to suggest acute cholecystitis on this noncontrast examination. Nonacute findings include small hiatal hernia and moderate atherosclerotic diseasee . 02/10/2018 gallbladder ultrasound revealed the following-- Very distended gallbladder with stones. However, there are no additional findings to suggest acute cholecystitis. Trace perihepatic free fluid. As described on the recent noncontrast CT, findings are suspicious for pancreatitis. Suggest correlating with amylase and lipase values. -WBC 15.2 hemoglobin 11.0 hematocrit 32.2 platelet count 158 -BUN 27 creatinine 1.16 total bilirubin 1.4 AST 97 ALT 68 alk phos 68 lipase 18, 004 Plan -N.p.o. -Antiemetics and analgesics as per attending -Monitor labs closely -No MRCP as patient has mechanical valve -CMP, lipase and CBC in the a.m. -Supportive care -Further recommendations to follow This patient has been seen by myself and Dr. Clay and this note is written on his behalf - Attending Attestation Dr. Clay <Cyndy Méndez - Last Filed: 02/10/18 19:52> (1) Cholelithiasis Status: Acute Code(s): K80.20 - Calculus of gallbladder without cholecystitis without obstruction (2) Choledocholithiasis Status: Acute Code(s): K80.50 - Calculus of bile duct without cholangitis or cholecystitis without obstruction (3) Pancreatitis, acute Status: Acute Code(s): K85.90 - Acute pancreatitis without necrosis or infection, unspecified - Attending Attestation The patient is seen and examined. I agree with the assessment and recommendations above. <Gordo Clay - Last Filed: 02/11/18 08:48>
[2018-02-11 01:56] LABS: INR 2.1 Ratio; Prothrombin Time 21.7 sec (9.8-11.6)
[2018-02-11 06:01] LABS: Baso % (Auto) 0.2 % (0.0-2.0); Eos % (Auto) 0.2 % (0.0-4.0); Hematocrit 29.5 % (35.0-46.0); Hemoglobin 10.2 gm/dL (11.6-15.3); Lymph # (Auto) 0.7 th/mm3 (1.0-4.8); Lymph % (Auto) 5.8 % (9.0-44.0); Mean Corpuscular HGB Conc 34.6 % (32.0-36.0); Mean Corpuscular Hemoglobin 32.5 pg (27.0-34.0); Mean Platelet Volume 8.9 fL (7.0-11.0); Mono # (Auto) 0.9 th/mm3 (0.0-0.9); Neut % (Auto) 86.8 % (16.0-70.0); Platelet Count 125 th/mm3 (150-450); Red Blood Count 3.14 mil/mm3 (4.00-5.30); Red Cell Distribution Width 15.9 % (11.6-17.2); White Blood Count 12.7 th/mm3 (4.0-11.0)
[2018-02-11 06:10] LABS: Alanine Aminotransferase 51 U/L (10-53); Anion Gap 9 meq/L (5-15); Aspartate Aminotransferase 59 U/L (15-37); Blood Urea Nitrogen 29 mg/dL (7-18); Calcium 8.7 mg/dL (8.5-10.1); Carbon Dioxide 26.1 meq/L (21.0-32.0); Chloride 103 meq/L (98-107); Glucose,Random 81 mg/dL (74-106); Potassium 3.9 meq/L (3.5-5.1); Sodium 138 meq/L (136-145)
[2018-02-11 06:13] LABS: Alkaline Phosphatase 53 U/L (45-117); Lipase 8439 U/L (73-393); Total Protein 6.8 g/dL (6.4-8.2)
--- NOTE | 2018-02-11 08:40 | ECG ---
Date Performed: 02/10/2018 Time Performed: 17:34:52 PTAGE: 87 years EKG: ATRIAL FIBRILLATION WITH ABERRANT CONDUCTION OR VENTRICULAR PREMATURE COMPLEXES MARKED LEFT AXIS DEVIATION SEPTAL MYOCARDIAL INFARCTION ABNORMAL ECG PREVIOUS TRACING : 01/17/2018 18.10 DOCTOR: Romario Nguyen Interpretating Date/Time 02/11/2018 08:39:37
--- NOTE | 2018-02-11 14:56 | P.PNIM ---
Subjective Interval history: Pt c/o continued abdominal pain, but less from admission. pt denies n/v. Physical Exam Vital signs: Last Vital Signs Temp 97.9 F 02/11/18 12:00 Pulse 77 02/11/18 12:00 Resp 17 02/11/18 12:00 BP 132/61 02/11/18 12:00 Pulse Ox 96 02/11/18 12:00 Results Labs CBC & Chem 7: 02/11/18 04:17 02/11/18 04:17 Assessment and Plan Assessment (1) Cholelithiasis: Code(s): K80.20 - Calculus of gallbladder without cholecystitis without obstruction Status: Acute (2) Choledocholithiasis: Code(s): K80.50 - Calculus of bile duct without cholangitis or cholecystitis without obstruction Status: Acute (3) Pancreatitis, acute: Code(s): K85.90 - Acute pancreatitis without necrosis or infection, unspecified Status: Acute Plan (1) Pancreatitis, acute Code(s): K85.90 - Acute pancreatitis without necrosis or infection, unspecified Status: Acute - unclear etiology - No new meds per pt. - Possible passage of gallstone or intermittent obs from sludge. - IVFs - prn narcotics - NPO except medications - lipase 18,004 (02/10), 8439 (02/11) - repeat lipase in AM. - If lipase and clinical symptoms continue to improve, then will advance diet in AM 02/12 - anticipate d/c to home in 2-3 days - PT - supportive care - DVT prophylaxis (2) Aortic valve replaced Code(s): Z95.2 - Presence of prosthetic heart valve Status: Chronic Plan: Mechanical valve in place. Continue warfarin. Check INR. May use Lovenox starting tomorrow if she can't take her warfarin. (3) GERD (gastroesophageal reflux disease) Code(s): K21.9 - Gastro-esophageal reflux disease without esophagitis Status: Acute Plan: continue PPI (4) Hypercholesteremia Code(s): E78.00 - Pure hypercholesterolemia, unspecified Status: Acute Plan: hold med for now (5) Hypertension Code(s): I10 - Essential (primary) hypertension Status: Acute 6) UTI - Urine Cx (02/10) --> gram negative rods - continue rocephin Progress Note: Quality VTE Deep Vein Thrombosis/Pulmonary Embolism Present on Admission: No _ (1) Cholelithiasis Qualifiers: Biliary obstruction: Cholangitis acuity: Cholangitis presence: Cholecystitis acuity: Cholecystitis presence: Cholelithiasis location: (2) Pancreatitis, acute Qualifiers: Acute pancreatitis complication: Pancreatitis type:
--- NOTE | 2018-02-11 16:43 | P.PCN ---
Date of procedure: 02/18/18 Pre-op diagnosis: Gallstone pancreatitis, distended gallbladder with Cholelithiasis Procedure: PROCEDURE PERFORMED EUS PROCEDURE: The procedure, risks and benefits were discussed with Patient/POA and informed consent was obtained. Anesthesia sedated Patient with Diprivan. Patient was placed in the left lateral decubitus position. Endoscopic ultrasound: The Pentax videoscope was introduced through the oropharynx and advanced to the second portion of the duodenum. FINDINGS: The pancreatic parenchyma appeared to be unremarkable within normal limits from head to tail with a normal-appearing pancreatic duct Common bile duct appeared to be unremarkable with normal limits from the hilum to the ampulla measuring about 5 mm with no filling defects Gallbladder appeared to be within normal limits with hyperechoic lesion with acoustic shadowing suggestive of cholelithiasis No lymphadenopathy was noted ESTIMATED BLOOD LOSS: None SPECIMENS REMOVED: None COMPLICATIONS: None IMPRESSION: Cholelithiasis Probable gallstone pancreatitis PLAN: Continue with current supportive care No further action in this elderly lady except to continue with current supportive care monitor labs If any recurrence of pancreatitis then I would suggest contemplating cholecystectomy depending on the presentation of course Anesthesia: MAC Surgeon: Jase Patel Condition: stable Disposition: floor
[2018-02-11] MEDS: Sod Chloride 0.9% Inj 1,000 ML IV.CONT SCH (18:08)
[2018-02-12] MEDS: Sod Chloride 0.9% Inj 1,000 ML IV.CONT SCH ×3 (02:06→10:58)
[2018-02-12 04:56] LABS: Baso % (Auto) 0.1 % (0.0-2.0); Eos # (Auto) 0.1 th/mm3 (0.0-0.4); Eos % (Auto) 0.6 % (0.0-4.0); Hematocrit 26.9 % (35.0-46.0); Hemoglobin 9.4 gm/dL (11.6-15.3); Lymph # (Auto) 0.5 th/mm3 (1.0-4.8); Lymph % (Auto) 5.3 % (9.0-44.0); Mean Corpuscular HGB Conc 34.9 % (32.0-36.0); Mean Corpuscular Hemoglobin 33.1 pg (27.0-34.0); Mean Corpuscular Volume 94.9 fL (80.0-100.0); Mean Platelet Volume 8.9 fL (7.0-11.0); Mono # (Auto) 0.5 th/mm3 (0.0-0.9); Neut # (Auto) 9.2 th/mm3 (1.8-7.7); Platelet Count 97 th/mm3 (150-450); Red Blood Count 2.84 mil/mm3 (4.00-5.30); Red Cell Distribution Width 16.3 % (11.6-17.2); White Blood Count 10.4 th/mm3 (4.0-11.0)
[2018-02-12 05:24] LABS: Alanine Aminotransferase 45 U/L (10-53); Albumin 2.9 g/dL (3.4-5.0); Anion Gap 10 meq/L (5-15); Aspartate Aminotransferase 51 U/L (15-37); Blood Urea Nitrogen 28 mg/dL (7-18); Calcium 8.6 mg/dL (8.5-10.1); Carbon Dioxide 21.8 meq/L (21.0-32.0); Chloride 109 meq/L (98-107); Glucose,Random 71 mg/dL (74-106); Magnesium 2.3 mg/dL (1.5-2.5); Potassium 3.6 meq/L (3.5-5.1); Sodium 141 meq/L (136-145)
[2018-02-12 05:25] LABS: Platelet Morphology Normal (Normal)
[2018-02-12 05:27] LABS: Alkaline Phosphatase 99 U/L (45-117); Lipase 2988 U/L (73-393); Total Protein 6.7 g/dL (6.4-8.2)
[2018-02-12] MEDS: Digoxin 125 MCG Tablet PO SCH (11:50)
--- NOTE | 2018-02-12 12:07 | P.PNIM ---
Subjective Interval history: Patient resting in bed with Teo at bedside Patient offers no complaints at this time no linger having abd pain Physical Exam Vital signs: Last Vital Signs Temp 97.8 F 02/12/18 08:00 Pulse 84 02/12/18 08:00 Resp 18 02/12/18 08:00 BP 130/66 02/12/18 08:00 Pulse Ox 96 02/12/18 08:00 Narrative: GENERAL: This is a pleasant elderly female patient, well-developed patient, in no apparent distress. CARDIOVASCULAR: Regular rate and rhythm RESPIRATORY: Clear to auscultation. Breath sounds equal bilaterally. GASTROINTESTINAL: Abdomen soft, non-tender, nondistended. Normal active bowel sounds MUSCULOSKELETAL: Extremities without clubbing, cyanosis, or edema. NEURO: Awake and alert. Appears to be at mental baseline, forgetful. Moves all ext x4 Results Labs CBC & Chem 7: 02/13/18 07:30 02/13/18 07:30 Assessment and Plan Assessment (1) Cholelithiasis: Code(s): K80.20 - Calculus of gallbladder without cholecystitis without obstruction Status: Acute (2) Choledocholithiasis: Code(s): K80.50 - Calculus of bile duct without cholangitis or cholecystitis without obstruction Status: Acute (3) Pancreatitis, acute: Code(s): K85.90 - Acute pancreatitis without necrosis or infection, unspecified Status: Acute Plan (1) Pancreatitis, acute - unclear etiology - No new meds per pt. - Possible passage of gallstone or intermittent obs from sludge. - IVFs- DC'd - prn narcotics S/P EUS 02/18/[address] Patel Cholelithiasis Probable gallstone pancreatitis No further action in this elderly lady except to continue with current supportive care monitor labs If any recurrence of pancreatitis then I would suggest contemplating cholecystectomy depending on the presentation of course - lipase 18,004 (02/10), 8439 (02/11), 2988 (02/12) - repeat lipase in AM. - Advance to soft diet - anticipate d/c to home tomorrow - PT - supportive care - DVT prophylaxis (2) Aortic valve replaced Mechanical valve in place. Continue warfarin. repeat INR (02/12) 2.0, will give Lovenox 50 mg SQ now recheck INR in AM (3) GERD (gastroesophageal reflux disease) continue PPI (4) Hypercholesteremia hold Atorvastatin (5) Hypertension Resume home losartan 6) UTI - Urine culture 02/10 growing Klebsiella pneumonia valdez sensitive - DC Rocephin, start Cipro DVT prophylaxis patient on Coumadin Attending Attestation The exam, history, and the medical decision-making described in the above note were completed with the assistance of the mid-level provider. I reviewed and agree with the findings presented. I attest that I had a [id number] encounter with the patient on the same day, and personally performed and documented my assessment and findings in the medical record. Patient examined. Assessment and plan formulated with Dennise Muñoz PA-C. I agree with the above. Progress Note: Quality VTE Deep Vein Thrombosis/Pulmonary Embolism Present on Admission: No _ (1) Cholelithiasis Qualifiers: Biliary obstruction: Cholangitis acuity: Cholangitis presence: Cholecystitis acuity: Cholecystitis presence: Cholelithiasis location: (2) Pancreatitis, acute Qualifiers: Acute pancreatitis complication: Pancreatitis type:
[2018-02-12 13:35] LABS: Prothrombin Time 20.2 sec (9.8-11.6)
--- NOTE | 2018-02-12 13:50 | P.PNGI ---
Subjective Interval history: Pt is resting in bed, not voicing any complaints, discussed with daughter surgical consult for possible cholecystectomy, pt daughter is declining at this time. <Luis Barahona - Last Filed: 02/12/18 13:41> Physical Exam Vital signs: Vital Signs 02/11/18 16:48 02/11/18 17:01 02/11/18 17:13 Temperature 97.8 F Pulse Rate 80 78 79 Respiratory Rate 20 18 18 Blood Pressure 123/57 L 137/63 140/96 H Pulse Oximetry 100 96 96 02/11/18 19:09 02/11/18 23:35 02/12/18 08:00 Temperature 97.9 F 98.7 F 97.8 F Pulse Rate 82 81 84 Respiratory Rate 18 18 18 Blood Pressure 139/67 141/64 H 130/66 Pulse Oximetry 94 L 96 96 02/12/18 12:00 Temperature 97.9 F Pulse Rate 82 Respiratory Rate 20 Blood Pressure 151/66 H Pulse Oximetry 96 Intake & Output 02/11/18 02/12/18 02/12/18 18:59 06:59 18:59 Intake Total 600 / 600 1460 / 1460 1090 / 1090 Output Total 800 / 800 900 / 900 Balance -200 / -200 1460 / 1460 190 / 190 Weight 50.4 kg Intake: IV 1100 / 1100 850 / 850 NS Inj 1,000 ML @ 84 mls/hr IV. 1000 / 1000 850 / 850 CONT .[id number] MYLES Rx#:[id number] Rocephin Inj 1,000 MG In NS Inj 100 / 100 100 ML @ 200 mls/hr IV.SIG Q24H MYLES Rx#:[id number] Oral 360 / 360 240 / 240 Anesthesia Amount 600 / 600 Output: Urine 800 / 800 900 / 900 Other: # Voids 4 Date of Last Bowel Movement 02/10/18 02/10/18 02/10/18 # Bowel Movements 0 Narrative: GENERAL: Alert and oriented, nad SKIN: Warm and dry. NECK: Trachea midline. No JVD. CARDIOVASCULAR: Regular rate and rhythm. midsystolic click c/w mech valve, no rub RESPIRATORY: No accessory muscle use. Clear to auscultation. Breath sounds equal bilaterally. GASTROINTESTINAL: Abdomen soft, no tenderness, mildly distended MUSCULOSKELETAL: Extremities without clubbing, cyanosis. NEUROLOGICAL: Awake and alert. PSYCHIATRIC: Appropriate mood and affect; insight and judgment normal. - Urinary Catheter Management Straight Cath placed during this visit: yes Reason for continuing: Not indwelling catheter Insertion date: 02/10/18 <Luis Barahona - Last Filed: 02/12/18 13:41> Vital signs: Vital Signs 02/11/18 16:48 02/11/18 17:01 02/11/18 17:13 Temperature 97.8 F Pulse Rate 80 78 79 Respiratory Rate 20 18 18 Blood Pressure 123/57 L 137/63 140/96 H Pulse Oximetry 100 96 96 02/11/18 19:09 02/11/18 23:35 02/12/18 08:00 Temperature 97.9 F 98.7 F 97.8 F Pulse Rate 82 81 84 Respiratory Rate 18 18 18 Blood Pressure 139/67 141/64 H 130/66 Pulse Oximetry 94 L 96 96 02/12/18 12:00 02/12/18 15:37 Temperature 97.9 F 97.5 F L Pulse Rate 82 83 Respiratory Rate 20 17 Blood Pressure 151/66 H 154/68 H Pulse Oximetry 96 96 Intake & Output 02/11/18 02/12/18 02/12/18 18:59 06:59 18:59 Intake Total 600 / 600 1460 / 1460 1090 / 1090 Output Total 800 / 800 900 / 900 Balance -200 / -200 1460 / 1460 190 / 190 Weight 50.4 kg Intake: IV 1100 / 1100 850 / 850 NS Inj 1,000 ML @ 84 mls/hr IV. 1000 / 1000 850 / 850 CONT .[id number] MYLES Rx#:[id number] Rocephin Inj 1,000 MG In NS Inj 100 / 100 100 ML @ 200 mls/hr IV.SIG Q24H MYLES Rx#:[id number] Oral 360 / 360 240 / 240 Anesthesia Amount 600 / 600 Output: Urine 800 / 800 900 / 900 Other: # Voids 4 Date of Last Bowel Movement 02/10/18 02/10/18 02/12/18 # Bowel Movements 0 - Urinary Catheter Management Straight Cath placed during this visit: no <Gordo Clay - Last Filed: 02/12/18 16:02> Results - Labs CBC & Chem 7: 02/12/18 04:21 02/12/18 04:21 Laboratory Results - last 24 hr 02/10/18 02/12/18 02/12/18 16:00 04:21 04:21 WBC 10.4 RBC 2.84 L Hgb 9.4 L Hct 26.9 L MCV 94.9 MCH 33.1 MCHC 34.9 RDW 16.3 Plt Count 97 L MPV 8.9 Prelim Diff (Auto) Slide review pending Neut % (Auto) 89.0 H Lymph % (Auto) 5.3 L Atlantic % (Auto) 5.0 Eos % (Auto) 0.6 Baso % (Auto) 0.1 Neut # (Auto) 9.2 H Lymph # (Auto) 0.5 L Atlantic # (Auto) 0.5 Eos # (Auto) 0.1 Baso # (Auto) 0.0 WBC Differential . Diff Scan Auto diff confirmed Differential Comment . Platelet Estimate Low L Platelet Morphology Normal PT INR Sodium 141 Potassium 3.6 Chloride 109 H Carbon Dioxide 21.8 Anion Gap 10 BUN 28 H Creatinine 1.03 H Random Glucose 71 L Calcium 8.6 Magnesium 2.3 Total Bilirubin 0.8 AST 51 H ALT 45 Alkaline Phosphatase 99 Total Protein 6.7 Albumin 2.9 L Lipase 2988 H Urine Color Yellow Urine Clarity Cloudy H Urine pH 7.0 Ur Specific Hector 1.009 Urine Protein Negative Urine Glucose (UA) Negative Urine Ketones Negative Urine Occult Blood Negative Urine Nitrate Negative Urine Bilirubin Negative Urine Urobilinogen Less than 2 Ur Leukocyte Esterase Large H Urine RBC 2 Urine WBC 92 H Urine WBC Clumps Few H Ur Squamous Epith Cells 1 Urine Bacteria Many H Micro UA Comment Culture indicated Urine Culture Comments Culture indicated 02/12/18 13:00 WBC RBC Hgb Hct MCV MCH MCHC RDW Plt Count MPV Prelim Diff (Auto) Neut % (Auto) Lymph % (Auto) Atlantic % (Auto) Eos % (Auto) Baso % (Auto) Neut # (Auto) Lymph # (Auto) Atlantic # (Auto) Eos # (Auto) Baso # (Auto) WBC Differential Diff Scan Differential Comment Platelet Estimate Platelet Morphology PT 20.2 H INR 2.0 Sodium Potassium Chloride Carbon Dioxide Anion Gap BUN Creatinine Random Glucose Calcium Magnesium Total Bilirubin AST ALT Alkaline Phosphatase Total Protein Albumin Lipase Urine Color Urine Clarity Urine pH Ur Specific Hector Urine Protein Urine Glucose (UA) Urine Ketones Urine Occult Blood Urine Nitrate Urine Bilirubin Urine Urobilinogen Ur Leukocyte Esterase Urine RBC Urine WBC Urine WBC Clumps Ur Squamous Epith Cells Urine Bacteria Micro UA Comment Urine Culture Comments Microbiology 02/10/18 16:00 Clean Catch Urine Urine Culture - Final Klebsiella pneumoniae <Luis Barahona - Last Filed: 02/12/18 13:41> - Labs CBC & Chem 7: 02/12/18 04:21 02/12/18 04:21 Laboratory Results - last 24 hr 02/12/18 02/12/18 02/12/18 04:21 04:21 13:00 WBC 10.4 RBC 2.84 L Hgb 9.4 L Hct 26.9 L MCV 94.9 MCH 33.1 MCHC 34.9 RDW 16.3 Plt Count 97 L MPV 8.9 Prelim Diff (Auto) Slide review pending Neut % (Auto) 89.0 H Lymph % (Auto) 5.3 L Atlantic % (Auto) 5.0 Eos % (Auto) 0.6 Baso % (Auto) 0.1 Neut # (Auto) 9.2 H Lymph # (Auto) 0.5 L Atlantic # (Auto) 0.5 Eos # (Auto) 0.1 Baso # (Auto) 0.0 WBC Differential . Diff Scan Auto diff confirmed Differential Comment . Platelet Estimate Low L Platelet Morphology Normal PT 20.2 H INR 2.0 Sodium 141 Potassium 3.6 Chloride 109 H Carbon Dioxide 21.8 Anion Gap 10 BUN 28 H Creatinine 1.03 H Random Glucose 71 L Calcium 8.6 Magnesium 2.3 Total Bilirubin 0.8 AST 51 H ALT 45 Alkaline Phosphatase 99 Total Protein 6.7 Albumin 2.9 L Lipase 2988 H Microbiology 02/10/18 16:00 Clean Catch Urine Urine Culture - Final Klebsiella pneumoniae <Gordo Clay - Last Filed: 02/12/18 16:02> Assessment and Plan (1) Cholelithiasis Status: Acute Code(s): K80.20 - Calculus of gallbladder without cholecystitis without obstruction (2) Choledocholithiasis Status: Acute Code(s): K80.50 - Calculus of bile duct without cholangitis or cholecystitis without obstruction (3) Pancreatitis, acute Status: Acute Code(s): K85.90 - Acute pancreatitis without necrosis or infection, unspecified - Plan This patient is an 87-year-old female with past medical history significant for aortic valve stenosis, mitral and tricuspid valve regurgitation, atrial fibrillation, GERD, lichen sclerosus, obstructive sleep apnea, hypertension and hyperlipidemia. Surgical history significant for bilateral knee replacements, total abdominal hysterectomy, bladder suspension, bladder fistula repair, mitral and tricuspid valve annuloplasty, AVR with mechanical valve, paravaginal defect repair and rotator cuff repair. Patient presented to [place] emergency room with complaint of bilateral mid back pain. Patient states onset of pain this a.m. She describes same as an ache without any known alleviating or aggravating factors. Patient also reports accompanying nausea and vomiting over the last 2-3 days. She reports increased frequency of vomiting this a.m. Patient denies any fever or chills. Denies any sick contacts contacts or recent travel. Patient denies any change in bowel habits. She states she has a normal soft BM daily. CT scan and labs in the ER likely represent pancreatitis with dilated gallbladder with stones. No gallbladder wall thickening or common bile duct obstruction noted. Our service has been consulted to evaluate patient for pancreatitis/possible choledocholithiasis Pancreatitis Cholelithiasis NO nausea or vomiting. Patient denies any fever or chills. 02/10/2018 CT abdomen pelvis reveal the following-- There is fluid and inflammation in the upper abdomen and left upper quadrant that appears to be centered around the pancreas suggesting acute pancreatitis as the etiology. A small volume of free fluid is also present within the pelvis. Suggest correlating with appropriate laboratory values. Very distended gallbladder with at least 2 gallstones. However, the gallbladder wall does not appear thickened and there are no definite surrounding inflammatory changes to suggest acute cholecystitis on this noncontrast examination. Nonacute findings include small hiatal hernia and moderate atherosclerotic diseasee . 02/10/2018 gallbladder ultrasound revealed the following-- Very distended gallbladder with stones. However, there are no additional findings to suggest acute cholecystitis. Trace perihepatic free fluid. As described on the recent noncontrast CT, findings are suspicious for pancreatitis. Suggest correlating with amylase and lipase values. s/p EUS on 02/11/18 The pancreatic parenchyma appeared to be unremarkable within normal limits from head to tail with a normal-appearing pancreatic duct Common bile duct appeared to be unremarkable with normal limits from the hilum to the ampulla measuring about 5 mm with no filling defects Gallbladder appeared to be within normal limits with hyperechoic lesion with acoustic shadowing suggestive of cholelithiasis No lymphadenopathy was noted -WBC normalized - Lipase trending down, LFTs trending down Plan - Low fat diet - Ok to dC home from GI stand point - F/u with GI upon discharge - discussed with daughter surgical consult for possible cholecystectomy, pt daughter is declining at this time due to advanced age -Antiemetics and analgesics as per attending -Supportive care This patient has been seen by myself and Dr. Caly and this note is written on his behalf <Luis Barahona - Last Filed: 02/12/18 13:41> (1) Cholelithiasis Status: Acute Code(s): K80.20 - Calculus of gallbladder without cholecystitis without obstruction (2) Choledocholithiasis Status: Acute Code(s): K80.50 - Calculus of bile duct without cholangitis or cholecystitis without obstruction (3) Pancreatitis, acute Status: Acute Code(s): K85.90 - Acute pancreatitis without necrosis or infection, unspecified - Attending Attestation I have seen and examined the patient. I agree with the assessment and plan as above. <Gordo Clay - Last Filed: 02/12/18 16:02>
[2018-02-12] MEDS ORDERED: Enoxaparin Inj 60 MG/0.6 ML Syringe SQ ONE (14:28)
[2018-02-12] MEDS: Ciprofloxacin 250 MG Tablet PO SCH (21:18)
[2018-02-13] MEDS: Ciprofloxacin 250 MG Tablet PO SCH (08:02)
[2018-02-13] MEDS: Digoxin 125 MCG Tablet PO SCH (08:02)
[2018-02-13 08:41] LABS: INR 2.4 Ratio; Prothrombin Time 24.1 sec (9.8-11.6)
[2018-02-13 08:44] LABS: Baso % (Auto) 0.3 % (0.0-2.0); Eos # (Auto) 0.1 th/mm3 (0.0-0.4); Eos % (Auto) 1.5 % (0.0-4.0); Hematocrit 25.6 % (35.0-46.0); Lymph # (Auto) 0.6 th/mm3 (1.0-4.8); Lymph % (Auto) 8.3 % (9.0-44.0); Mean Corpuscular HGB Conc 35.1 % (32.0-36.0); Mean Platelet Volume 8.9 fL (7.0-11.0); Mono # (Auto) 0.5 th/mm3 (0.0-0.9); Mono % (Auto) 6.8 % (0.0-8.0); Neut # (Auto) 5.6 th/mm3 (1.8-7.7); Neut % (Auto) 83.1 % (16.0-70.0); Platelet Count 87 th/mm3 (150-450); Red Blood Count 2.72 mil/mm3 (4.00-5.30); Red Cell Distribution Width 15.8 % (11.6-17.2); White Blood Count 6.8 th/mm3 (4.0-11.0)
[2018-02-13 09:04] LABS: Alanine Aminotransferase 37 U/L (10-53); Albumin 2.6 g/dL (3.4-5.0); Alkaline Phosphatase 90 U/L (45-117); Anion Gap 10 meq/L (5-15); Aspartate Aminotransferase 45 U/L (15-37); Blood Urea Nitrogen 17 mg/dL (7-18); Calcium 8.3 mg/dL (8.5-10.1); Carbon Dioxide 21.8 meq/L (21.0-32.0); Chloride 106 meq/L (98-107); Glomerular Filtration Rate 61 mL/min (>89); Glucose,Random 87 mg/dL (74-106); Lipase 830 U/L (73-393); Potassium 3.1 meq/L (3.5-5.1); Sodium 138 meq/L (136-145); Total Protein 6.1 g/dL (6.4-8.2)
[2018-02-13 09:40] LABS: Platelet Morphology Normal (Normal)
[2018-02-13 12:47] VITALS: BP 147/76; PULSE 87; RESP 16; TEMP 97.4; O2SAT 96
--- NOTE | 2018-02-13 13:59 | P.DS ---
Addendum entered and electronically signed by VLADIMIR Haynes 14:02: Correction: S/P EUS 02/11/[address] Patel Original Note: DS: Providers Date of admission: 02/10/18 17:15 Primary care physician: Ponce Soto MD Consults: 02/10/18 17:13 Consult to Gastroenterology Routine Consulting Provider: Gordo Clay Preferred Authorization Nurse:: Gordo Clay Reason for Consultation: pancreatitis possible choledocolithiasis Notified:: Service Spoke with:: GERTRUDE Date Notified:: 02/10/18 Time Notified:: 17:20 Ordering Provider: JIM Brief History from admission: 87-year-old female with PMH of A. fib, GERD, mechanical aortic valve replacement on chronic warfarin presents the ED via EMS for evaluation of 8/10 bilateral mid back pain. Onset this morning upon waking. Aching in quality, no alleviating or exacerbating factors reported. Patient also reports nausea and vomiting over the last few days, but was vomiting much more this AM. No new meds or unusual foods. No others sick in household. She denies fever, chills, changes in bowel habits. She endorses chronic urinary incontinence, but she denies urinary urgency, dysuria, hematuria. No treatment attempted before arrival. CT scan and lipase c/w pancreatitis and dilated GB with stones, but no GB wall thickening or obvious CBD obstruction. Has been given IVF, pain med and antiemetics in ER and is feeling a bit better. No more vomiting since in ER per pt report. PMH: History of aortic valve stenosis. S/P mechanical MVR Mitral and tricuspid valve regurgitation Mitral and tricuspid valve repair on March 25, 2010. She has history of chronic atrial fibrillation. History of gastroesophageal reflux disease. Lichens sclerosis. History of obstructive sleep apnea. History of hypertension in the past. Hyperlipidemia in the past. PSxH: History of bilateral knee replacements. BETO/BSO. History of bladder suspension surgery. Bladder fistula repair Colonoscopy EGD mitral and tricuspid valve annuloplasty AVR with mechanical valve paravaginal defect repair rotator cuff repair Social history: denies ETOH use or tobacco use Lives with friend who is her caregiver Has 2 living children Retired from [employer] in [facility]: Reviewed and noncontributory DS: Diagnosis Discharge Diagnosis (1) Cholelithiasis: Status: Acute (2) Choledocholithiasis: Status: Acute (3) Pancreatitis, acute: Status: Acute DS: Summary (1) Pancreatitis, acute - unclear etiology - No new meds per pt. - Possible passage of gallstone or intermittent obs from sludge. - IVFs- DC'd - prn narcotics S/P EUS 02/18/[address] Patel Cholelithiasis Probable gallstone pancreatitis No further action in this elderly lady except to continue with current supportive care monitor labs If any recurrence of pancreatitis then I would suggest contemplating cholecystectomy depending on the presentation of course - 02/13 cleared for DC per GI - lipase 18,004 (02/10), 8439 (02/11), 2988 (02/12), 830 (02/13) - tolerating diet - PT - supportive care - DVT prophylaxis (2) Aortic valve replaced Mechanical valve in place. Continue warfarin. repeat INR (02/12) 2.0, will give Lovenox 50 mg SQ now recheck INR in AM (3) GERD (gastroesophageal reflux disease) continue PPI (4) Hypercholesteremia hold Atorvastatin while NPO will resume at DC (5) Hypertension Resume home losartan 6) UTI - Urine culture 02/10 growing Klebsiella pneumonia valdez sensitive - treated with Rocephin and Cipro 7) Hypokalemia replaced DVT prophylaxis patient on Coumadin Attending Attestation: The exam, history, and the medical decision-making described in the above note were completed with the assistance of the mid-level provider. I reviewed and agree with the findings presented. I attest that I had a [id number] encounter with the patient on the same day, and personally performed and documented my assessment and findings in the medical record. Patient examined. Assessment and plan formulated with Dennise Muñoz PA-C. I agree with the above. Time Spent with Patient Total time spent providing and/or coordinating discharge services: Quality: VTE Deep Vein Thrombosis/Pulmonary Embolism Present on Admission: No Exam Narrative Exam Narrative: GENERAL: This is a pleasant elderly female patient, well- developed patient, in no apparent distress. CARDIOVASCULAR: Regular rate and rhythm RESPIRATORY: Clear to auscultation. Breath sounds equal bilaterally. GASTROINTESTINAL: Abdomen soft, non-tender, nondistended. Normal active bowel sounds MUSCULOSKELETAL: Extremities without clubbing, cyanosis, or edema. NEURO: Awake and alert. Appears to be at mental baseline, forgetful. Moves all ext x4 Results Labs on day of discharge: Labs from last 24 hours 02/13/18 02/13/18 02/13/18 07:30 07:30 07:30 WBC 6.8 RBC 2.72 L Hgb 9.0 L Hct 25.6 L MCV 94.0 MCH 33.0 MCHC 35.1 RDW 15.8 Plt Count 87 L MPV 8.9 Prelim Diff (Auto) Slide review pending Neut % (Auto) 83.1 H Lymph % (Auto) 8.3 L [place] % (Auto) 6.8 Eos % (Auto) 1.5 Baso % (Auto) 0.3 Neut # (Auto) 5.6 Lymph # (Auto) 0.6 L [place] # (Auto) 0.5 Eos # (Auto) 0.1 Baso # (Auto) 0.0 WBC Differential . Diff Scan Auto diff confirmed Differential Comment . Platelet Estimate Low L Platelet Morphology Normal PT 24.1 H INR 2.4 Sodium 138 Potassium 3.1 L Chloride 106 Carbon Dioxide 21.8 Anion Gap 10 BUN 17 Creatinine 0.88 Estimated GFR 61 L Random Glucose 87 Calcium 8.3 L Total Bilirubin 0.7 AST 45 H ALT 37 Alkaline Phosphatase 90 Total Protein 6.1 L D Albumin 2.6 L Lipase 830 H Impressions ITS Impressions Abdomen/Pelvis CT 02/10/18 15:15 CONCLUSION: 1. There is fluid and inflammation in the upper abdomen and left upper quadrant that appears to be centered around the pancreas suggesting acute pancreatitis as the etiology. A small volume of free fluid is also present within the pelvis. Suggest correlating with appropriate laboratory values. 2. Very distended gallbladder with at least 2 gallstones. However, the gallbladder wall does not appear thickened and there are no definite surrounding inflammatory changes to suggest acute cholecystitis on this noncontrast examination. 3. Nonacute findings include small hiatal hernia and moderate atherosclerotic disease. Chest X-Ray 02/10/18 15:46 CONCLUSION: Interval improvement in pulmonary opacities with mild perihilar and bibasilar residual. Gallbladder Ultrasound 02/10/18 16:50 CONCLUSION: 1. Very distended gallbladder with stones. However, there are no additional findings to suggest acute cholecystitis. 2. Trace perihepatic free fluid. As described on the recent noncontrast CT, findings are suspicious for pancreatitis. Suggest correlating with amylase and lipase values. Discharge Plan Discharge Disposition Patient Disposition: 01 Discharge Home Discharge Condition Condition: Stable Discharge Order Discharge Orders: Discharge Order (Routine); Ordered 02/13/18 Ordered By: Dennise Muñoz Discharge Details Anticipated Discharge Date: 02/13/18 Physicians Team Primary Care Provider: Ponce Soto Attending Provider: Jamison Benton Other Providers: Gordo Clay Rxs /Orders / Referrals /Forms Prescriptions: Continue losartan 50 mg Tablet 50 mg PO DAILY RF: 0 potassium chloride 10 mEq Tablet Extended Release 10 meq PO DAILY RF: 0 pravastatin 10 mg Tablet 10 mg PO DAILY RF: 0 warfarin 5 mg Tablet 5 mg PO DAILY RF: 0 bumetanide 1 mg Tablet 1 mg PO BID RF: 0 digoxin 125 mcg Tablet 0.125 mg PO DAILY RF: 0 bupropion HCl 300 mg Tablet Extended Release 24 Hr 300 mg PO QAM RF: 0 omeprazole 20 mg Tablet,Delayed Release (Dr/Ec) 20 mg PO DAILY RF: 0 Referrals: Ponce Soto MD [Primary Care Provider] - See Instructions (follow up in 1 week) Jase Patel MD [Physician] - See Instructions (Follow up in 2 weeks) Discharge Instructions Patient Printed Instructions: Pancreatitis (GEN), Gallstones (GEN), Urinary Tract Infection in Women (ED), Fall Prevention (GEN), Safe Use of Anticoagulants (GEN) Additional Instructions: FOLLOW UP WITH YOUR PRIMARY CARE PROVIDER WITHIN 1-2 WEEKS. CALL TO SCHEDULE. PRESCRIPTIONS PROVIDED AT TIME OF DISCHARGE. RETURN TO EMERGENCY ROOM FOR INCREASED, UNRELIEVED PAIN, NAUSEA, VOMITING, DIFFICULTY URINATING, OR DIZZINESS. Post Discharge Care Plan Care Plan Goals: Your Health Problems: PANCREATITIS, URINARY TRACT INFECTION Goals to Promote Your Health: * To prevent worsening of your condition * To maintain your health at the optimal level Directions to Meet Your Goals: * Take your medications as prescribed * Follow your dietary instruction * Follow activity as directed * Keep your appointments as scheduled * Take your immunizations and boosters as scheduled * If your symptoms worsen call your PCP * If no PCP go to Urgent Care or Emergency Room Smoking is dangerous to your health. Avoid second hand smoke. You may reach the 24-hour crisis hotline for domestic abuse at . Status ED Status: Left Department Discharge Information Discharge Date/Time: 02/13/18 15:18
== END 2018-02-13 15:18 | disposition home or self-care (01) ==
LOC: NEPE 15:03 → NEDA 17:15 → N06 19:21
PROVIDERS: ADMIT Hospitalist; ATTEND Hospitalist
DX: E78.5 Hyperlipidemia, unspecified; N28.9 Disorder of kidney and ureter, unspecified; B96.1 Klebsiella pneumoniae [K. pneumoniae] as the cause of diseases classified elsewhere; R32 Unspecified urinary incontinence; K44.9 Diaphragmatic hernia without obstruction or gangrene; K21.9 Gastro-esophageal reflux disease without esophagitis; K85.10 Biliary acute pancreatitis without necrosis or infection; N39.0 Urinary tract infection, site not specified; I11.0 Hypertensive heart disease with heart failure; Z88.2 Allergy status to sulfonamides; K80.70 Calculus of gallbladder and bile duct without cholecystitis without obstruction; G47.33 Obstructive sleep apnea (adult) (pediatric); I50.9 Heart failure, unspecified; E78.00 Pure hypercholesterolemia, unspecified; Z95.2 Presence of prosthetic heart valve; I48.2 Chronic atrial fibrillation; Z79.01 Long term (current) use of anticoagulants; Z79.899 Other long term (current) drug therapy; E87.6 Hypokalemia; Z87.891 Personal history of nicotine dependence; Z96.653 Presence of artificial knee joint, bilateral